=== PATIENT | male | born 1975 | race Caucasian/White ===

== ENCOUNTER 2018-04-13 08:45 | Inpatient (IN) | payer OTHER ==
[2018-04-13] MEDS ORDERED: LORazepam 2 MG/ML SDV IVPUSH ONE ×2 (09:06→18:05)
--- NOTE | 2018-04-13 09:10 | EDM.PDOC ---
ED HPI GENERAL MEDICAL PROBLEM - General Source of Information: Reports: Patient, EMS History Limitations: Reports: Altered Mental Status - History of Present Illness Onset: Unknown/Unsure Duration: Hour(s): Location: Reports: Head (He is not sure what time he tried to go to bed.), Face ( He is to his face and head left lateral face adjacent to his eye. This is superficial abrasion but was actively bleeding. There is dried blood at the left anterior naris as well but no injury to the inner aspect of the nose.) Severity: Severe (Barely responds to stimuli.) Improves with: Reports: None Worsens with: Reports: None Context: Reports: Trauma. Denies: Activity, Exercise, Lifting, Sick Contact Associated Symptoms: Reports: Confusion (Found wedged between the bed and a wall and he is a big chance there is no way he could've gotten out of there on his own volition especially when he was severely impaired. Appears to obstruct the corner of the night table on the way to the floor. He has a superficial abrasion laceration to his left lateral face adjacent to his eye. Both eyes appear to have scleral icterus.), cough w sputum, Malaise, Weakness. Denies: Chest Pain, Cough, Diaphoresis (Office. Smokes at least a pack per day.), Fever/ Chills, Headaches, Shortness of Breath Treatments DEPARTMENT CHAIR: Reports: Oxygen - General Chief Complaint: Drug or Alcohol Abuse Stated Complaint: AMBULANCE Time Seen by Provider: 04/13/18 09:00 - History of Present Illness INITIAL COMMENTS - FREE TEXT/NARRATIVE: 43-year-old male brought to the ED per ambulance after being found by a coworker jammed between his bed and the wall. He was unresponsive even to deep stimulation. 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 Somehow he managed to fall between the bed and the wall was pinned in this position. It's unclear when he may have fallen. Paramedics were called. They found that he was responsive only to very deep painful stimuli. He smells strongly of stale alcohol. He had a cut laceration just lateral to his left eye appears to obstruct the night table corner. There was no emesis on scene. is now alert enough to answer some questions in a very froggy voice. He states he smokes a pack a day. Prefers to lie still with his eyes closed. Smells strongly of stale alcohol. (Chi Chávez) - Related Data Allergies Allergy/AdvReac Type Severity Reaction Status Date / Time No Known Allergies Allergy Verified 04/13/18 09:06 Home Meds: Home Meds Furosemide 20 mg PO DAILY 04/13/18 [History] Propranolol [Inderal] 10 mg PO BID 04/13/18 [History] Social & Family History - Living Situation & Occupation Living situation: Reports: Single Occupation: Employed Social History Comment: His brother reports that he is a chronic alcohol user on a daily basis in large quantities. Attempts to quit in the past of not met with any success primarily because the patient doesn't wish to quit. ED ROS GENERAL - Review of Systems Review Of Systems: Unable To Obtain (Patient) - Physical Exam Exam: See Below Exam Limited By: Altered Mental Status (Confused disoriented to person place and time. Prefers to lie still with his eyes closed.) General Appearance: Obtunded, Moderate Distress (Requires oxygen for support.) Eye Exam: Bilateral Eye: Other (Clinically has bilateral scleral icterus suggesting chronic alcohol abuse. Superficial) Ears: Normal TMs ( abrasion to the left lateral face adjacent to his eye that does not require suture repair.) Nose: Other (Some dried blood at the anterior aspect of his left naris but no internal bleeding or septal hematoma.) Throat/Mouth: Other (Lung is dry and coated teeth are in need of repair.) Head Exam: Other (No outward signs of scalp hematoma or active bleeding. Other than his facial wound.) Neck: Normal Inspection, Supple, Non-Tender, Full Range of Motion, Other. No: Lymphadenopathy (L), Lymphadenopathy (R) Respiratory/Chest: No Respiratory Distress (No pain to palpation), Rhonchi ( Rhonchi both upper lobes of his lungs. Harsh paroxysmal productive sounding cough. Chest x-ray done to make sure he did not aspirate but he smokes at least a pack and a half per day.) Cardiovascular: Normal Peripheral Pulses, Regular Rate, Rhythm, No Edema, No Gallop, No Murmur GI/Abdominal: Normal Bowel Sounds, Soft, Non-Tender, No Organomegaly, No Abnormal Bruit, No Mass, Other (Numerous abdominal striae a. No scars identified ) Neuro Exam (Abbreviated): Inattentive, Confused, Disoriented (Started to person place and time.), Slow to Respond (Will respond to a few questions.). No: Alert , Oriented, CN II-XII Intact, Normal Cognition, Normal Gait, Normal Reflexes, No Motor/Sensory Deficits DTR: 0: Achilles (R), Achilles (L), 1+: Bicep (L), Tricep (R), Patella (R), Patella (L) Back Exam: Normal Inspection, Full Range of Motion, Other (No abrasions contusions or obvious injuries to his thoracic or lumbar spine.) Extremities: Other (Mild bruise mid extensor surface right forearm. No bony injuries identified in either upper extremity or lower extremities. He has full internal/external rotation of both hips with no back pain or pelvis pain. Knees are intact. Ankles normal) Psychiatric: Flat Affect Skin Exam: Warm, Dry, Intact, Normal Color, No Rash Course - Vital Signs Last Recorded V/S: Last Vital Signs Temp 36.2 C 04/13/18 08:50 Pulse 108 H 04/13/18 18:49 Resp 19 04/13/18 18:49 BP 142/65 H 04/13/18 18:49 Pulse Ox 90 L 04/13/18 18:49 - Orders/Labs/Meds Orders: Active Orders 24 hr Category Date Time Status Patient Status [ADT] Routine ADT 04/13/18 22:29 Active Cardiac Monitoring [RC] CONTINUOUS Care 04/13/18 22:30 Active EKG Documentation Completion [RC] STAT Care 04/13/18 09:07 Active Height and Weight [RC] DAILY Care 04/13/18 22:25 Active Intake and Output [RC] QSHIFT Care 04/13/18 22:30 Active Oxygen Therapy [RC] ASDIRECTED Care 04/13/18 09:15 Active Oxygen Therapy [RC] PRN Care 04/13/18 22:29 Active Up to Chair [RC] ASDIRECTED Care 04/13/18 22:25 Active VTE/DVT Education [RC] PER UNIT ROUTINE Care 04/13/18 22:29 Active Vital Signs [RC] Q4H Care 04/13/18 22:29 Active Clear Liquid Diet [DIET] Diet 04/14/18 Breakfast Active Chest 1V Frontal [CR] DAILY Exams 04/14/18 06:00 Ordered Chest 1V Frontal [CR] DAILY Exams 04/15/18 06:00 Ordered Chest 1V Frontal [CR] DAILY Exams 04/16/18 06:00 Ordered Chest 1V Frontal [CR] DAILY Exams 04/17/18 06:00 Ordered Chest 1V Frontal [CR] Stat Exams 04/13/18 18:37 Taken Chest 1V Frontal [CR] Stat Exams 04/13/18 22:00 Ordered Chest PE [Ang Chest] [CT] Stat Exams 04/13/18 19:03 Taken CBC WITH AUTO DIFF [HEME] DAILY Lab 04/13/18 22:30 Ordered CBC WITH AUTO DIFF [HEME] DAILY Lab 04/14/18 22:30 Ordered CBC WITH AUTO DIFF [HEME] DAILY Lab 04/15/18 22:30 Ordered COMPREHENSIVE METABOLIC PN,CMP [CHEM] AM Lab 04/14/18 05:11 Ordered CULTURE BLOOD [BC] Stat Lab 04/13/18 21:06 Received CULTURE BLOOD [BC] Stat Lab 04/13/18 21:12 Received Ampicillin/Sulbactam Na [Unasyn] 3 gm Med 04/14/18 00:00 Ordered Sodium Chloride 0.9% [Normal Saline] 100 ml IV Q6H Dextrose 5%-0.9% NaCl [Dextrose 5%-Normal Saline] 1,000 Med 04/13/18 16:00 Active ml IV ASDIRECTED Dextrose 5%-Lactated Ringers 1,000 ml Med 04/13/18 09:15 Active IV ASDIRECTED Dextrose 5%-Lactated Ringers 1,000 ml Med 04/13/18 11:45 Active IV ASDIRECTED Heparin Sodium Med 04/13/18 22:30 Ordered 5,000 units SUBCUT Q8H Morphine Med 04/13/18 22:25 Ordered 2 mg IVPUSH Q2H PRN Ondansetron [Zofran] Med 04/13/18 22:25 Ordered 4 mg IV Q6H PRN Sodium Chloride 0.9% [Normal Saline] 1,000 ml Med 04/13/18 22:15 Active IV ASDIRECTED oxyCODONE Med 04/13/18 22:25 Ordered 5 mg PO Q4H PRN Blood Culture x2 Reflex Set [OM.PC] Stat Oth 04/13/18 20:40 Ordered Sequential Compression Device [OM.PC] Per Unit Routine Oth 04/13/18 22:31 Ordered Resuscitation Status Routine Resus Stat 04/13/18 22:25 Ordered Medication Orders Heparin Sodium (Porcine) (Heparin Sodium) 5,000 units SUBCUT Q8H [facility] Dextrose/Lactated Ringer's (Dextrose 5%-Lactated Ringers) 1,000 mls @ 999 mls/ hr IV ASDIRECTED [facility] Last Admin: 04/13/18 09:20 Dose: 999 mls/hr Dextrose/Lactated Ringer's (Dextrose 5%-Lactated Ringers) 1,000 mls @ 250 mls/ hr IV ASDIRECTED [facility] Last Admin: 04/13/18 11:35 Dose: 250 mls/hr Dextrose/Sodium Chloride (Dextrose 5%-Normal Saline) 1,000 mls @ 250 mls/hr IV ASDIRECTED [facility] Last Admin: 04/13/18 16:17 Dose: 250 mls/hr Sodium Chloride (Normal Saline) 1,000 mls @ 80 mls/hr IV ASDIRECTED [facility] Last Admin: 04/13/18 22:12 Dose: 80 mls/hr Ampicillin Sodium/Sulbactam (Sodium 3 gm/ Sodium Chloride) 100 mls @ 200 mls/ hr IV Q6H [facility] Morphine Sulfate (Morphine) 2 mg IVPUSH Q2H PRN PRN Reason: Pain (severe 7-10) Stop: 04/14/18 22:32 Ondansetron HCl (Zofran) 4 mg IV Q6H PRN PRN Reason: Nausea/Vomiting Oxycodone HCl (Oxycodone) 5 mg PO Q4H PRN PRN Reason: Pain (moderate 4-6) Labs: Laboratory Tests 04/13/18 04/13/18 04/13/18 Range/Units 09:00 09:00 09:00 WBC 5.91 (4.23-9.07) K/mm3 RBC 3.73 L (4.63-6.08) M/mm3 Hgb 10.1 L (13.7-17.5) gm/L Hct 32.1 L (40.1-51.0) % MCV 86.1 (79.0-92.2) fl MCH 27.1 (25.7-32.2) pg MCHC 31.5 L (32.2-35.5) g/dl RDW Std Deviation 51.2 H (35.1-43.9) fL Plt Count 117 L (163-337) K/mm3 MPV 10.3 (9.4-12.3) fl Neutrophils % (Manual) 54 (40-60) % Band Neutrophils % 2 (0-10) % Lymphocytes % (Manual) 35 (20-40) % Atypical Lymphs % 1 % Monocytes % (Manual) 5 (2-10) % Eosinophils % (Manual) 2 (0.8-7.0) % Basophils % (Manual) 0 L (0.2-1.2) Metamyelocytes % 1 Platelet Estimate Decreased Plt Morphology Comment Normal Polychromasia 1+ slight Anisocytosis 1+ slight Target Cells Moderate Ovalocytes Few Acanthocytes (Spur) Few Rouleaux 1+ slight RBC Morph Comment Not Reportable PT 15.3 H (9.5-12.1) SECONDS INR 1.41 D-Dimer, Quantitative (0.19-0.50) mg/L Puncture Site ABG pH (7.35-7.45) ABG pCO2 (35.0-45.0) mmHg ABG pO2 (80.0-100.0) mmHg ABG HCO3 (22.0-26.0) meq/L ABG O2 Saturation (96.0-97.0) % ABG Base Excess (-2-2.0) A-a Gradient mmHg O2 Delivery Device FiO2 (21.00-100.00) % Sodium 139 (136-145) mEq/L Potassium 2.8 L (3.5-5.1) mEq/L Chloride 99 (98-107) mEq/L Carbon Dioxide 31 (21-32) mEq/L Anion Gap 11.8 (5-15) BUN 4 L (7-18) mg/dL Creatinine 0.8 (0.7-1.3) mg/dL Est Cr Clr Drug Dosing TNP Estimated GFR (MDRD) > 60 (>60) mL/min BUN/Creatinine Ratio 5.0 L (14-18) Glucose 152 H (74-106) mg/dL Lactic Acid (0.4-2.0) mmol/L Calcium 7.4 L (8.5-10.1) mg/dL Magnesium 1.6 L (1.8-2.4) mg/dl Total Bilirubin 5.2 H (0.2-1.0) mg/dL AST 87 H (15-37) U/L ALT 38 (16-63) U/L Alkaline Phosphatase 112 (46-116) U/L Ammonia (11-32) umol/L Creatine Kinase 624 H (39-308) U/L Troponin I (0.00-0.056) ng/mL C-Reactive Protein 1.6 H* (<1.0) mg/dL NT-Pro-B Natriuret Pep (0-125) pg/mL Total Protein 8.5 H (6.4-8.2) g/dl Albumin 2.8 L (3.4-5.0) g/dl Globulin 5.7 gm/dL Albumin/Globulin Ratio 0.5 L (1-2) Lipase (73-393) U/L Urine Color (Yellow) Urine Appearance (Clear) Urine pH (5.0-8.0) Ur Specific [place] (1.005-1.030) Urine Protein (Negative) Urine Glucose (UA) (Negative) Urine Ketones (Negative) Urine Occult Blood (Negative) Urine Nitrite (Negative) Urine Bilirubin (Negative) Urine Urobilinogen (0.2-1.0) Ur Leukocyte Esterase (Negative) Urine Opiates Screen (NEGATIVE) Ur Buprenorphine Scrn (NEGATIVE) Ur Oxycodone Screen (NEGATIVE) Urine Methadone Screen (NEGATIVE) Ur Propoxyphene Screen (NEGATIVE) Ur Barbiturates Screen (NEGATIVE) Ur Tricyclics Screen (NEGATIVE) Ur Phencyclidine Scrn (NEGATIVE) Ur Amphetamine Screen (NEGATIVE) U Methamphetamines Scrn (NEGATIVE) U Benzodiazepines Scrn (NEGATIVE) U Cocaine Metab Screen (NEGATIVE) U Marijuana (THC) Screen (NEGATIVE) Ethyl Alcohol 0.44 (0.00) gm% Ketones (0.0-0.3) mM 04/13/18 04/13/18 04/13/18 Range/Units 09:00 09:00 09:25 WBC (4.23-9.07) K/mm3 RBC (4.63-6.08) M/mm3 Hgb (13.7-17.5) gm/L Hct (40.1-51.0) % MCV (79.0-92.2) fl MCH (25.7-32.2) pg MCHC (32.2-35.5) g/dl RDW Std Deviation (35.1-43.9) fL Plt Count (163-337) K/mm3 MPV (9.4-12.3) fl Neutrophils % (Manual) (40-60) % Band Neutrophils % (0-10) % Lymphocytes % (Manual) (20-40) % Atypical Lymphs % % Monocytes % (Manual) (2-10) % Eosinophils % (Manual) (0.8-7.0) % Basophils % (Manual) (0.2-1.2) Metamyelocytes % Platelet Estimate Plt Morphology Comment Polychromasia Anisocytosis Target Cells Ovalocytes Acanthocytes (Spur) Rouleaux RBC Morph Comment PT (9.5-12.1) SECONDS INR D-Dimer, Quantitative (0.19-0.50) mg/L Puncture Site ABG pH (7.35-7.45) ABG pCO2 (35.0-45.0) mmHg ABG pO2 (80.0-100.0) mmHg ABG HCO3 (22.0-26.0) meq/L ABG O2 Saturation (96.0-97.0) % ABG Base Excess (-2-2.0) A-a Gradient mmHg O2 Delivery Device FiO2 (21.00-100.00) % Sodium (136-145) mEq/L Potassium (3.5-5.1) mEq/L Chloride (98-107) mEq/L Carbon Dioxide (21-32) mEq/L Anion Gap (5-15) BUN (7-18) mg/dL Creatinine (0.7-1.3) mg/dL Est Cr Clr Drug Dosing Estimated GFR (MDRD) (>60) mL/min BUN/Creatinine Ratio (14-18) Glucose (74-106) mg/dL Lactic Acid 2.9 H (0.4-2.0) mmol/L Calcium (8.5-10.1) mg/dL Magnesium (1.8-2.4) mg/dl Total Bilirubin (0.2-1.0) mg/dL AST (15-37) U/L ALT (16-63) U/L Alkaline Phosphatase (46-116) U/L Ammonia (11-32) umol/L Creatine Kinase (39-308) U/L Troponin I (0.00-0.056) ng/mL C-Reactive Protein (<1.0) mg/dL NT-Pro-B Natriuret Pep (0-125) pg/mL Total Protein (6.4-8.2) g/dl Albumin (3.4-5.0) g/dl Globulin gm/dL Albumin/Globulin Ratio (1-2) Lipase 731 H (73-393) U/L Urine Color (Yellow) Urine Appearance (Clear) Urine pH (5.0-8.0) Ur Specific [place] (1.005-1.030) Urine Protein (Negative) Urine Glucose (UA) (Negative) Urine Ketones (Negative) Urine Occult Blood (Negative) Urine Nitrite (Negative) Urine Bilirubin (Negative) Urine Urobilinogen (0.2-1.0) Ur Leukocyte Esterase (Negative) Urine Opiates Screen (NEGATIVE) Ur Buprenorphine Scrn (NEGATIVE) Ur Oxycodone Screen (NEGATIVE) Urine Methadone Screen (NEGATIVE) Ur Propoxyphene Screen (NEGATIVE) Ur Barbiturates Screen (NEGATIVE) Ur Tricyclics Screen (NEGATIVE) Ur Phencyclidine Scrn (NEGATIVE) Ur Amphetamine Screen (NEGATIVE) U Methamphetamines Scrn (NEGATIVE) U Benzodiazepines Scrn (NEGATIVE) U Cocaine Metab Screen (NEGATIVE) U Marijuana (THC) Screen (NEGATIVE) Ethyl Alcohol (0.00) gm% Ketones 0.19 (0.0-0.3) mM 04/13/18 04/13/18 04/13/18 Range/Units 17:50 17:50 18:25 WBC (4.23-9.07) K/mm3 RBC (4.63-6.08) M/mm3 Hgb (13.7-17.5) gm/L Hct (40.1-51.0) % MCV (79.0-92.2) fl MCH (25.7-32.2) pg MCHC (32.2-35.5) g/dl RDW Std Deviation (35.1-43.9) fL Plt Count (163-337) K/mm3 MPV (9.4-12.3) fl Neutrophils % (Manual) (40-60) % Band Neutrophils % (0-10) % Lymphocytes % (Manual) (20-40) % Atypical Lymphs % % Monocytes % (Manual) (2-10) % Eosinophils % (Manual) (0.8-7.0) % Basophils % (Manual) (0.2-1.2) Metamyelocytes % Platelet Estimate Plt Morphology Comment Polychromasia Anisocytosis Target Cells Ovalocytes Acanthocytes (Spur) Rouleaux RBC Morph Comment PT (9.5-12.1) SECONDS INR D-Dimer, Quantitative (0.19-0.50) mg/L Puncture Site Lt radial ABG pH 7.51 H (7.35-7.45) ABG pCO2 38.3 (35.0-45.0) mmHg ABG pO2 53.0 L (80.0-100.0) mmHg ABG HCO3 30.3 H (22.0-26.0) meq/L ABG O2 Saturation 80.2 L (96.0-97.0) % ABG Base Excess 7.0 H (-2-2.0) A-a Gradient 34 mmHg O2 Delivery Device Room air FiO2 21.00 (21.00-100.00) % Sodium (136-145) mEq/L Potassium (3.5-5.1) mEq/L Chloride (98-107) mEq/L Carbon Dioxide (21-32) mEq/L Anion Gap (5-15) BUN (7-18) mg/dL Creatinine (0.7-1.3) mg/dL Est Cr Clr Drug Dosing Estimated GFR (MDRD) (>60) mL/min BUN/Creatinine Ratio (14-18) Glucose (74-106) mg/dL Lactic Acid (0.4-2.0) mmol/L Calcium (8.5-10.1) mg/dL Magnesium (1.8-2.4) mg/dl Total Bilirubin (0.2-1.0) mg/dL AST (15-37) U/L ALT (16-63) U/L Alkaline Phosphatase (46-116) U/L Ammonia (11-32) umol/L Creatine Kinase (39-308) U/L Troponin I (0.00-0.056) ng/mL C-Reactive Protein (<1.0) mg/dL NT-Pro-B Natriuret Pep (0-125) pg/mL Total Protein (6.4-8.2) g/dl Albumin (3.4-5.0) g/dl Globulin gm/dL Albumin/Globulin Ratio (1-2) Lipase (73-393) U/L Urine Color [place] H (Yellow) Urine Appearance Clear (Clear) Urine pH 6.0 (5.0-8.0) Ur Specific [place] 1.025 (1.005-1.030) Urine Protein Trace H (Negative) Urine Glucose (UA) Trace H (Negative) Urine Ketones Trace H (Negative) Urine Occult Blood Negative (Negative) Urine Nitrite Negative (Negative) Urine Bilirubin 2+ H (Negative) Urine Urobilinogen >=8.0 H (0.2-1.0) Ur Leukocyte Esterase Negative (Negative) Urine Opiates Screen Negative (NEGATIVE) Ur Buprenorphine Scrn Negative (NEGATIVE) Ur Oxycodone Screen Negative (NEGATIVE) Urine Methadone Screen Negative (NEGATIVE) Ur Propoxyphene Screen Negative (NEGATIVE) Ur Barbiturates Screen Negative (NEGATIVE) Ur Tricyclics Screen Negative (NEGATIVE) Ur Phencyclidine Scrn Negative (NEGATIVE) Ur Amphetamine Screen Negative (NEGATIVE) U Methamphetamines Scrn Negative (NEGATIVE) U Benzodiazepines Scrn Negative (NEGATIVE) U Cocaine Metab Screen Negative (NEGATIVE) U Marijuana (THC) Screen Negative (NEGATIVE) Ethyl Alcohol (0.00) gm% Ketones (0.0-0.3) mM 04/13/18 04/13/18 04/13/18 Range/Units 18:25 18:25 18:25 WBC (4.23-9.07) K/mm3 RBC (4.63-6.08) M/mm3 Hgb (13.7-17.5) gm/L Hct (40.1-51.0) % MCV (79.0-92.2) fl MCH (25.7-32.2) pg MCHC (32.2-35.5) g/dl RDW Std Deviation (35.1-43.9) fL Plt Count (163-337) K/mm3 MPV (9.4-12.3) fl Neutrophils % (Manual) (40-60) % Band Neutrophils % (0-10) % Lymphocytes % (Manual) (20-40) % Atypical Lymphs % % Monocytes % (Manual) (2-10) % Eosinophils % (Manual) (0.8-7.0) % Basophils % (Manual) (0.2-1.2) Metamyelocytes % Platelet Estimate Plt Morphology Comment Polychromasia Anisocytosis Target Cells Ovalocytes Acanthocytes (Spur) Rouleaux RBC Morph Comment PT (9.5-12.1) SECONDS INR D-Dimer, Quantitative 5.75 H (0.19-0.50) mg/L Puncture Site ABG pH (7.35-7.45) ABG pCO2 (35.0-45.0) mmHg ABG pO2 (80.0-100.0) mmHg ABG HCO3 (22.0-26.0) meq/L ABG O2 Saturation (96.0-97.0) % ABG Base Excess (-2-2.0) A-a Gradient mmHg O2 Delivery Device FiO2 (21.00-100.00) % Sodium (136-145) mEq/L Potassium (3.5-5.1) mEq/L Chloride (98-107) mEq/L Carbon Dioxide (21-32) mEq/L Anion Gap (5-15) BUN (7-18) mg/dL Creatinine (0.7-1.3) mg/dL Est Cr Clr Drug Dosing Estimated GFR (MDRD) (>60) mL/min BUN/Creatinine Ratio (14-18) Glucose (74-106) mg/dL Lactic Acid (0.4-2.0) mmol/L Calcium (8.5-10.1) mg/dL Magnesium (1.8-2.4) mg/dl Total Bilirubin (0.2-1.0) mg/dL AST (15-37) U/L ALT (16-63) U/L Alkaline Phosphatase (46-116) U/L Ammonia (11-32) umol/L Creatine Kinase (39-308) U/L Troponin I 0.045 (0.00-0.056) ng/mL C-Reactive Protein (<1.0) mg/dL NT-Pro-B Natriuret Pep 26 (0-125) pg/mL Total Protein (6.4-8.2) g/dl Albumin (3.4-5.0) g/dl Globulin gm/dL Albumin/Globulin Ratio (1-2) Lipase (73-393) U/L Urine Color (Yellow) Urine Appearance (Clear) Urine pH (5.0-8.0) Ur Specific [place] (1.005-1.030) Urine Protein (Negative) Urine Glucose (UA) (Negative) Urine Ketones (Negative) Urine Occult Blood (Negative) Urine Nitrite (Negative) Urine Bilirubin (Negative) Urine Urobilinogen (0.2-1.0) Ur Leukocyte Esterase (Negative) Urine Opiates Screen (NEGATIVE) Ur Buprenorphine Scrn (NEGATIVE) Ur Oxycodone Screen (NEGATIVE) Urine Methadone Screen (NEGATIVE) Ur Propoxyphene Screen (NEGATIVE) Ur Barbiturates Screen (NEGATIVE) Ur Tricyclics Screen (NEGATIVE) Ur Phencyclidine Scrn (NEGATIVE) Ur Amphetamine Screen (NEGATIVE) U Methamphetamines Scrn (NEGATIVE) U Benzodiazepines Scrn (NEGATIVE) U Cocaine Metab Screen (NEGATIVE) U Marijuana (THC) Screen (NEGATIVE) Ethyl Alcohol (0.00) gm% Ketones (0.0-0.3) mM 04/13/18 04/13/18 Range/Units 18:35 22:01 WBC (4.23-9.07) K/mm3 RBC (4.63-6.08) M/mm3 Hgb (13.7-17.5) gm/L Hct (40.1-51.0) % MCV (79.0-92.2) fl MCH (25.7-32.2) pg MCHC (32.2-35.5) g/dl RDW Std Deviation (35.1-43.9) fL Plt Count (163-337) K/mm3 MPV (9.4-12.3) fl Neutrophils % (Manual) (40-60) % Band Neutrophils % (0-10) % Lymphocytes % (Manual) (20-40) % Atypical Lymphs % % Monocytes % (Manual) (2-10) % Eosinophils % (Manual) (0.8-7.0) % Basophils % (Manual) (0.2-1.2) Metamyelocytes % Platelet Estimate Plt Morphology Comment Polychromasia Anisocytosis Target Cells Ovalocytes Acanthocytes (Spur) Rouleaux RBC Morph Comment PT (9.5-12.1) SECONDS INR D-Dimer, Quantitative (0.19-0.50) mg/L Puncture Site ABG pH (7.35-7.45) ABG pCO2 (35.0-45.0) mmHg ABG pO2 (80.0-100.0) mmHg ABG HCO3 (22.0-26.0) meq/L ABG O2 Saturation (96.0-97.0) % ABG Base Excess (-2-2.0) A-a Gradient mmHg O2 Delivery Device FiO2 (21.00-100.00) % Sodium (136-145) mEq/L Potassium (3.5-5.1) mEq/L Chloride (98-107) mEq/L Carbon Dioxide (21-32) mEq/L Anion Gap (5-15) BUN (7-18) mg/dL Creatinine (0.7-1.3) mg/dL Est Cr Clr Drug Dosing Estimated GFR (MDRD) (>60) mL/min BUN/Creatinine Ratio (14-18) Glucose (74-106) mg/dL Lactic Acid (0.4-2.0) mmol/L Calcium (8.5-10.1) mg/dL Magnesium (1.8-2.4) mg/dl Total Bilirubin (0.2-1.0) mg/dL AST (15-37) U/L ALT (16-63) U/L Alkaline Phosphatase (46-116) U/L Ammonia 82 H (11-32) umol/L Creatine Kinase (39-308) U/L Troponin I (0.00-0.056) ng/mL C-Reactive Protein (<1.0) mg/dL NT-Pro-B Natriuret Pep (0-125) pg/mL Total Protein (6.4-8.2) g/dl Albumin (3.4-5.0) g/dl Globulin gm/dL Albumin/Globulin Ratio (1-2) Lipase (73-393) U/L Urine Color (Yellow) Urine Appearance (Clear) Urine pH (5.0-8.0) Ur Specific [place] (1.005-1.030) Urine Protein (Negative) Urine Glucose (UA) (Negative) Urine Ketones (Negative) Urine Occult Blood (Negative) Urine Nitrite (Negative) Urine Bilirubin (Negative) Urine Urobilinogen (0.2-1.0) Ur Leukocyte Esterase (Negative) Urine Opiates Screen (NEGATIVE) Ur Buprenorphine Scrn (NEGATIVE) Ur Oxycodone Screen (NEGATIVE) Urine Methadone Screen (NEGATIVE) Ur Propoxyphene Screen (NEGATIVE) Ur Barbiturates Screen (NEGATIVE) Ur Tricyclics Screen (NEGATIVE) Ur Phencyclidine Scrn (NEGATIVE) Ur Amphetamine Screen (NEGATIVE) U Methamphetamines Scrn (NEGATIVE) U Benzodiazepines Scrn (NEGATIVE) U Cocaine Metab Screen (NEGATIVE) U Marijuana (THC) Screen (NEGATIVE) Ethyl Alcohol 0.28 (0.00) gm% Ketones (0.0-0.3) mM Meds: Medications Generic Name Dose Route Start Last Admin Trade Name Franklyn PRN Reason Stop Dose Admin Heparin Sodium (Porcine) 5,000 units 04/13/18 22:30 Heparin Sodium SUBCUT Q8H PERLA Dextrose/Lactated Ringer's 1,000 mls @ 999 mls/hr 04/13/18 09:15 04/13/18 09: 20 Dextrose 5%-Lactated Ringers IV 999 mls/hr ASDIRECTED PERLA Administration Dextrose/Lactated Ringer's 1,000 mls @ 250 mls/hr 04/13/18 11:45 04/13/18 11: 35 Dextrose 5%-Lactated Ringers IV 250 mls/hr ASDIRECTED PERLA Administration Dextrose/Sodium Chloride 1,000 mls @ 250 mls/hr 04/13/18 16:00 04/13/18 16:17 Dextrose 5%-Normal Saline IV 250 mls/hr ASDIRECTED PERLA Administration Sodium Chloride 1,000 mls @ 80 mls/hr 04/13/18 22:15 04/13/18 22:12 Normal Saline IV 80 mls/hr ASDIRECTED PERLA Administration Ampicillin Sodium/Sulbactam 100 mls @ 200 mls/hr 04/14/18 00:00 Sodium 3 gm/ Sodium Chloride IV Q6H PERLA Morphine Sulfate 2 mg 04/13/18 22:25 Morphine IVPUSH 04/14/18 22:32 Q2H PRN Pain (severe 7-10) Ondansetron HCl 4 mg 04/13/18 22:25 Zofran IV Q6H PRN Nausea/Vomiting Oxycodone HCl 5 mg 04/13/18 22:25 Oxycodone PO Q4H PRN Pain (moderate 4-6) Discontinued Medications Generic Name Dose Route Start Last Admin Trade Name Franklyn PRN Reason Stop Dose Admin Thiamine HCl 100 mg/ Sodium 101 mls @ 202 mls/hr 04/13/18 09:20 04/13/18 09: 36 Chloride IV 04/13/18 09:21 202 mls/hr ONETIME ONE Administration Potassium Chloride 10 meq/ 100 mls @ 100 mls/hr 04/13/18 10:55 04/13/18 11:05 Premix IV 04/13/18 11:54 100 mls/hr ONETIME ONE Administration Potassium Chloride 10 meq/ 100 mls @ 100 mls/hr 04/13/18 15:54 04/13/18 16:17 Premix IV 04/13/18 16:53 100 mls/hr ONETIME ONE Administration Ampicillin Sodium/Sulbactam 100 mls @ 200 mls/hr 04/13/18 20:39 04/13/18 22: 18 Sodium 3 gm/ Sodium Chloride IV 04/13/18 21:08 200 mls/hr ONETIME ONE Administration Iopamidol 100 ml 04/13/18 19:15 04/13/18 20:04 Isovue-370 (76%) IVPUSH 04/13/18 19:16 80 ml ONETIME ONE Administration Iopamidol 100 ml 04/13/18 20:03 04/13/18 20:05 Isovue-370 (76%) IVPUSH 04/13/18 20:04 80 ml ONETIME ONE Administration Lorazepam 1 mg 04/13/18 09:06 04/13/18 09:21 Ativan IVPUSH 04/13/18 09:07 1 mg ONETIME ONE Administration Lorazepam 1 mg 04/13/18 18:05 04/13/18 22:16 Ativan IVPUSH 04/13/18 18:06 Not Given ONETIME ONE Metoclopramide HCl 10 mg 04/13/18 09:11 04/13/18 09:21 Reglan IVPUSH 04/13/18 09:12 10 mg ONETIME ONE Administration - Radiology Interpretation Free Text/Narrative:: 43-year-old male presents to the ED per [facility]. He was found by coworker jammed between the bed and his wall. Appears that he struck the right side of his face on the corner of a night table. This is a superficial laceration will not require laceration repair. He was so obtunded that his sats were in the 77 percentiles when they assessed him. He responded only to deep painful stimuli. Breath smells strongly of stale alcohol. There are no puncture wounds to suggest recent IV antibiotic usage in either antecubital fossa. He responds now to verbal stimulation and will answer most questions although he is speech is dysarthric. He has a harsh paroxysmal productive sounding cough with rhonchi both upper lobes. There is no evidence of any bony injuries only minor contusions to his forearms. He had to be done. Routine labs to be done. This is including a blood alcohol level. He will receive thiamine 100 mg IV and Ativan 1 mg IV. Reglan 10 mg IV. (Chi Chávez) - Re-Assessments/Exams Free Text/Narrative Re-Assessment/Exam: 04/13/18 10:24: CT head reveals more advanced degenerative changes in the basal ganglia than one would anticipate for his age. There is diffuse small vessel ischemic changes in both basal ganglia without any lacunar infarcts. There is no skull fractures or intracranial bleeding identified. X-ray of his chest shows elevated left hemidiaphragm. It appears that he bit his been left side dependent as there is vascular congestion throughout the left side of his chest only. The right side appears normal. 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 04/13/18 10:55 Labs are back revealing a normal white count at 5.91. Hemoglobin is low at 10.1 with hematocrit of 32.1. MCV is normal at 86.1. Platelet count low normal at 1 17,000. Differential shows 54% neutrophils 2% band cells. PT is 15.3 with an INR of 1.41. By May anticoagulated. Serum sodium is 139. Potassium is low at 2.8. He will be given potassium intravenously 10 mEq. Chloride is 99 with a bicarbonate 31. Anion gap is 11.8. BUNs 4 with a creatinine of 0.8. GFR is greater than 60. Glucose is 152. Lactic acid is elevated at 2.9. Calcium is 7.4. Magnesium low at 1.6. Total bilirubin is elevated at 5.2. AST is 87 with an ALT of 38. Alk phosphatase is 112. Creatine kinase is 624 with a C-reactive protein of 1.6. Blood alcohol is 0.44 g percent. Serum ketones elevated at 0.19. 04/13/18 11:32 lipase also returned elevated at 731. He has a history of recurrent pancreatitis of course from chronic alcohol abuse. Since his CPK is up mildly. I will continue IV fluids D5 LR at 250 mils per hour. He'll be in the ED for several hours until he is sober walking and talking. 04/13/18 15:36 Patient remains asleep --sleeping off his drunk. 04/13/18 18:05 patient is now alert he is able to understand verbal communication. He was able to stand at the bedside although he is extremely tremulous. I asked her repeatedly if he wished to stay in hospital for detox from alcohol is him and he declined. Plan will be to give him Ativan 1 mg IV to help with the shakes. He is not interested in treatment program at this time even though I indicated that he is suffering cirrhosis of the liver. The urine in the past year was severely hyperbilirubinemic. 04/13/18 18:25 been brought to my attention stat discharge that his O2 sats remained 85% on room air. I'm going to therefore have an ABG performed. I've ordered a d-dimer a serum troponin and a BNP in case were missing a diagnosis. Patient is alert but very tremulous at this time. His Ativan that I had ordered for the tremors have been placed on hold until I see his ABGs. 04/13/18 18:37 O2 sats remaining 82% with a good plus. Chest x-ray will be repeated as well in case he aspirated this morning. 04/13/18 19:10 repeat chest x-ray is unchanged from the one done earlier this morning. It still shows no significant evidence of an aspiration. The left hemidiaphragm does appear to be elevated the visualized portions of the right lung appear to be within normal limits. Cardiac silhouette is enlarged compatible with mild to moderate cardiomegaly. 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 His ABGs revealed a pH of 7.51. PCO2 is 38.3. PO2 is 53. Saturations on room air are 80%. Currently he 94% on 4 L/m by nasal specks. Plan I will turn care over to Dr. Ortega as it is change of shift. Patient will have CT pulmonary angiogram performed. We'll also awaiting the results of his BNP troponin. (Chi Chávez) Free Text/Narrative Re-Assessment/Exam: 04/13/18 20:40 CT of the chest with IV contrast is read by virtual radiology as: - Multiple acute left rib fractures, involving the sixth, seventh, eighth, ninth and 11th ribs. The left eighth rib is fractured in 2 locations. - Moderate to large left pleural effusion. - Findings suspicious for pneumonia in the right middle lobe. - Otherwise, no evidence of significant acute process. Exam is nondiagnostic for pulmonary emboli, however. - Cardiomegaly. - Suspect mild cirrhotic change of the liver. - See above for remaining findings. 04/13/18 20:40 Based on the above results, I have ordered 2 sets of blood cultures and will start the patient on IV Unasyn, as empiric treatment for aspiration pneumonia. Given the rib fractures, with a likely traumatic effusion versus hemothorax, this is a trauma case, not a medicine case. Case therefore discussed with Dr. Vance at 20:31. She will come to the ED to evaluate the patient, in anticipation that she will place a chest tube. 04/13/18 22:41 Because the patient remained unresponsive, an ammonia level and repeat alcohol level were ordered. The alcohol level has returned elevated at 0.28, but in discussion with the lab, the alcohol level was obtained from previously drawn blood at 18:35. This indicates a drop of 17.89 mg/dL/h. Projecting forward, the patient's alcohol level will not be 0 until 10:14 in the morning. The patient's ammonia level has returned elevated at 82 (11-32). This indicates that part of the patient's altered mental status may be related to hepatic encephalopathy. 04/13/18 22:46 The above test results were discussed with Dr. Vance here in the ED. She has placed a left-sided chest tube, which appears to be functioning properly, draining blood. She has already entered admission orders. (Florencio Rees) Departure - Departure Time of Disposition: 18:11 Condition: Fair - Discharge Information *PRESCRIPTION DRUG MONITORING PROGRAM REVIEWED*: No *COPY OF PRESCRIPTION DRUG MONITORING REPORT IN PATIENT BUTCH: No - Departure Disposition: Admitted As Inpatient 67 Clinical Impression: Alcohol abuse, Multiple fractures of ribs of left side, Traumatic hemothorax, Hepatic encephalopathy, Alcohol intoxication, Aspiration pneumonia Cirrhosis of liver Qualifiers: Hepatic cirrhosis type: alcoholic cirrhosis Ascites presence: without ascites Qualified Code(s): K70.30 - Alcoholic cirrhosis of liver without ascites - Discharge Information Instructions: What You Need to Know About Alcohol Abuse and Dependence, Adult, Alcohol Intoxication, [id number], Alcohol Abuse and Nutrition, Finding Treatment for Addiction Additional Instructions: Evaluation the emergency room today when you were found wedged between the wall and your bed in your home. You were found to be very low on oxygen levels. You were barely responsive to deep physical stimulation. You are placed on oxygen and removed from between the bed and the wall by paramedics and ambulance personnel. Mother brought to the hospital for evaluation. You able to speak with me and indicated your history. It is quite clear that she drank a large amount of alcohol last evening that caused her obtundation and lethargy today. Call here in the ED was still 4.4 with the legal limit to drive a motor vehicle at 0.08 therefore he would not be legally able to drive a motor vehicle for 24 hours. You're treated in the emergency room with intravenous fluids to provide rehydration and restore your serum potassium levels and magnesium levels. You' re treated with antinausea medication to prevent vomiting. Labs revealed and inflammation of your liver and pancreas from alcohol abuse. Labs also reveal signs and symptoms of cirrhosis of the liver. I would strongly suggest you give some consideration to stopping alcohol use as it will go on to cause cirrhosis of the liver and . Strongly urge you to have no further alcohol use today. Plenty of fluids such as Gatorade/Powerade to restore your volume depletion. A good meal would be in order as well. Suggest follow-up with addiction counselor if you wish to stop drinking. You could call [facility] at [phone] as they offer alcohol and drug treatment programs . - My Orders Last 24 Hours: My Active Orders 04/13/18 20:40 Blood Culture x2 Reflex Set [OM.PC] Stat 04/13/18 21:06 CULTURE BLOOD [BC] Stat 04/13/18 21:12 CULTURE BLOOD [BC] Stat - Assessment/Plan Last 24 Hours: My Active Orders 04/13/18 20:40 Blood Culture x2 Reflex Set [OM.PC] Stat 04/13/18 21:06 CULTURE BLOOD [BC] Stat 04/13/18 21:12 CULTURE BLOOD [BC] Stat
[2018-04-13] MEDS ORDERED: Metoclopramide 10 MG/2 ML SDV IVPUSH ONE (09:11)
[2018-04-13] MEDS ORDERED: Dextrose 5%-Lactated Ringers 1,000 ML IV SCH ×2 (09:15→11:45)
[2018-04-13] MEDS ORDERED: Thiamine 100 MG in Sodium Chloride 0.9% 100 ML IV ONE (09:20)
--- NOTE | 2018-04-13 10:24 | CT ---
Head CT Technique: Multiple axial sections through the brain were obtained. Intravenous contrast was not utilized. Comparison: No previous intracranial imaging. Findings: Ventricles along the basal cisterns and sulci over the convex these are mildly prominent and more prominent than usually seen for the patient's age. No abnormal parenchymal densities are seen. No evidence of intracranial hemorrhage. No midline shift or mass effect is seen. Bone window settings were reviewed which shows mild mucosal thickening within the ethmoid sinuses. No acute calvarial abnormality is appreciated. Impression: 1. Generalized atrophy which is more prominent than usually seen in a patient of this age. Differential includes chronic alcohol or drug abuse as well as some types of seizure medicines can cause this finding. Previous trauma can also cause this finding. 2. No acute intracranial abnormality is seen. 3. Slight sinus findings as noted above likely pre-existing. Diagnostic code #2
[2018-04-13] MEDS ORDERED: Potassium Chloride 10 MEQ in Premix Bag 1 BAG IV ONE ×2 (10:55→15:54)
[2018-04-13] MEDS ORDERED: Dextrose 5%-0.9% NaCl 1,000 ML IV SCH (16:00)
[2018-04-13] MEDS ORDERED: Iopamidol 755 Mg/ML 100 ML Bottle IVPUSH ONE ×2 (19:15→20:03)
[2018-04-13] MEDS ORDERED: Ampicillin/Sulbactam Na 3 GM in Sodium Chloride 0.9% 100 ML IV ONE (20:39)
--- NOTE | 2018-04-13 21:21 | CR ---
Chest: Portable view of the chest was obtained. Comparison: No previous study. Heart size is accentuated from portable technique. Upper mediastinum is normal. Haziness noted within the left base. Right lung is clear. Bony structures are grossly intact. Impression: 1. Haziness within the left lung base either due to atelectasis or possibly small area of pneumonia. 2. Portable chest x-ray is otherwise unremarkable. Diagnostic code #3
--- NOTE | 2018-04-13 22:09 | PCM.HP ---
H&P History of Present Illness - General Date of Service: 04/13/18 Admit Problem/Dx: hemothorax Source of Information: Patient, Provider History Limitations: Reports: Intoxication - History of Present Illness Initial Comments - Free Text/Narative: Pt is a 43 y/o male who was found at home stuck between a bed and a wall. He was brought in by EMS with profound intoxication. He is a poor historian. Per medical staff, pt had persistent hypoxia requiring supplemental oxygen despite becoming more sober. X-ray and CTA revealed multiple rib fractures and a moderate to large effusion on the left - Related Data Allergies/Adverse Reactions: Allergies Allergy/AdvReac Type Severity Reaction Status Date / Time No Known Allergies Allergy Verified 04/13/18 09:06 Home Medications: Home Meds Furosemide 20 mg PO DAILY 04/13/18 [History] Propranolol [Inderal] 10 mg PO BID 04/13/18 [History] Past Medical History Cardiovascular History: Reports: Hypertension Other Gastrointestinal History: Cirrhosis Social & Family History - Family History Family Medical History: Noncontributory - Tobacco Use Smoking Status *Q: Current Every Day Smoker Years of Tobacco use: 20 Packs/Tins Daily: 1 - Living Situation & Occupation Living situation: Reports: Single Occupation: Employed H&P Review of Systems - Review of Systems: Review Of Systems: See Below General: Reports: No Symptoms HEENT: Reports: No Symptoms Pulmonary: Reports: Shortness of Breath Cardiovascular: Reports: No Symptoms Gastrointestinal: Reports: No Symptoms Genitourinary: Reports: No Symptoms Musculoskeletal: Reports: No Symptoms Skin: Reports: Jaundice Psychiatric: Reports: No Symptoms Neurological: Reports: No Symptoms Hematologic/Lymphatic: Reports: No Symptoms Immunologic: Reports: No Symptoms Exam - Exam Exam: See Below - Vital Signs Vital Signs: Last Vital Signs Temp 36.2 C 04/13/18 08:50 Pulse 108 H 04/13/18 18:49 Resp 19 04/13/18 18:49 BP 142/65 H 04/13/18 18:49 Pulse Ox 90 L 04/13/18 18:49 Weight: 104.326 kg - Exam Quality Assessment: Supplemental Oxygen General: Cooperative, Lethargic HEENT: EOMI, Scleral Icterus Neck: Supple Lungs: Normal Respiratory Effort, Decreased Breath Sounds (on left lung) Cardiovascular: Regular Rate, Regular Rhythm GI/Abdominal Exam: Soft, Non-Tender, No Distention Extremities: Normal Inspection Skin: Other (Jaundiced) Neurological: Other (Asterixis) Neuro Extensive - Mental Status: Slow Response to Commands - Patient Data Lab Results Last 24 hrs: Laboratory Results - last 24 hr 04/13/18 04/13/18 04/13/18 Range/Units 09:00 09:00 09:00 WBC 5.91 (4.23-9.07) K/mm3 RBC 3.73 L (4.63-6.08) M/mm3 Hgb 10.1 L (13.7-17.5) gm/L Hct 32.1 L (40.1-51.0) % MCV 86.1 (79.0-92.2) fl MCH 27.1 (25.7-32.2) pg MCHC 31.5 L (32.2-35.5) g/dl RDW Std Deviation 51.2 H (35.1-43.9) fL Plt Count 117 L (163-337) K/mm3 MPV 10.3 (9.4-12.3) fl Neutrophils % (Manual) 54 (40-60) % Band Neutrophils % 2 (0-10) % Lymphocytes % (Manual) 35 (20-40) % Atypical Lymphs % 1 % Monocytes % (Manual) 5 (2-10) % Eosinophils % (Manual) 2 (0.8-7.0) % Basophils % (Manual) 0 L (0.2-1.2) Metamyelocytes % 1 Platelet Estimate Decreased Plt Morphology Comment Normal Polychromasia 1+ slight Anisocytosis 1+ slight Target Cells Moderate Ovalocytes Few Acanthocytes (Spur) Few Rouleaux 1+ slight RBC Morph Comment Not Reportable PT 15.3 H (9.5-12.1) SECONDS INR 1.41 D-Dimer, Quantitative (0.19-0.50) mg/L Puncture Site ABG pH (7.35-7.45) ABG pCO2 (35.0-45.0) mmHg ABG pO2 (80.0-100.0) mmHg ABG HCO3 (22.0-26.0) meq/L ABG O2 Saturation (96.0-97.0) % ABG Base Excess (-2-2.0) A-a Gradient mmHg O2 Delivery Device FiO2 (21.00-100.00) % Sodium 139 (136-145) mEq/L Potassium 2.8 L (3.5-5.1) mEq/L Chloride 99 (98-107) mEq/L Carbon Dioxide 31 (21-32) mEq/L Anion Gap 11.8 (5-15) BUN 4 L (7-18) mg/dL Creatinine 0.8 (0.7-1.3) mg/dL Est Cr Clr Drug Dosing TNP Estimated GFR (MDRD) > 60 (>60) mL/min BUN/Creatinine Ratio 5.0 L (14-18) Glucose 152 H (74-106) mg/dL Lactic Acid (0.4-2.0) mmol/L Calcium 7.4 L (8.5-10.1) mg/dL Magnesium 1.6 L (1.8-2.4) mg/dl Total Bilirubin 5.2 H (0.2-1.0) mg/dL AST 87 H (15-37) U/L ALT 38 (16-63) U/L Alkaline Phosphatase 112 (46-116) U/L Creatine Kinase 624 H (39-308) U/L Troponin I (0.00-0.056) ng/mL C-Reactive Protein 1.6 H* (<1.0) mg/dL NT-Pro-B Natriuret Pep (0-125) pg/mL Total Protein 8.5 H (6.4-8.2) g/dl Albumin 2.8 L (3.4-5.0) g/dl Globulin 5.7 gm/dL Albumin/Globulin Ratio 0.5 L (1-2) Lipase (73-393) U/L Urine Color (Yellow) Urine Appearance (Clear) Urine pH (5.0-8.0) Ur Specific [place] (1.005-1.030) Urine Protein (Negative) Urine Glucose (UA) (Negative) Urine Ketones (Negative) Urine Occult Blood (Negative) Urine Nitrite (Negative) Urine Bilirubin (Negative) Urine Urobilinogen (0.2-1.0) Ur Leukocyte Esterase (Negative) Urine Opiates Screen (NEGATIVE) Ur Buprenorphine Scrn (NEGATIVE) Ur Oxycodone Screen (NEGATIVE) Urine Methadone Screen (NEGATIVE) Ur Propoxyphene Screen (NEGATIVE) Ur Barbiturates Screen (NEGATIVE) Ur Tricyclics Screen (NEGATIVE) Ur Phencyclidine Scrn (NEGATIVE) Ur Amphetamine Screen (NEGATIVE) U Methamphetamines Scrn (NEGATIVE) U Benzodiazepines Scrn (NEGATIVE) U Cocaine Metab Screen (NEGATIVE) U Marijuana (THC) Screen (NEGATIVE) Ethyl Alcohol 0.44 (0.00) gm% Ketones (0.0-0.3) mM 04/13/18 04/13/18 04/13/18 Range/Units 09:00 09:00 09:25 WBC (4.23-9.07) K/mm3 RBC (4.63-6.08) M/mm3 Hgb (13.7-17.5) gm/L Hct (40.1-51.0) % MCV (79.0-92.2) fl MCH (25.7-32.2) pg MCHC (32.2-35.5) g/dl RDW Std Deviation (35.1-43.9) fL Plt Count (163-337) K/mm3 MPV (9.4-12.3) fl Neutrophils % (Manual) (40-60) % Band Neutrophils % (0-10) % Lymphocytes % (Manual) (20-40) % Atypical Lymphs % % Monocytes % (Manual) (2-10) % Eosinophils % (Manual) (0.8-7.0) % Basophils % (Manual) (0.2-1.2) Metamyelocytes % Platelet Estimate Plt Morphology Comment Polychromasia Anisocytosis Target Cells Ovalocytes Acanthocytes (Spur) Rouleaux RBC Morph Comment PT (9.5-12.1) SECONDS INR D-Dimer, Quantitative (0.19-0.50) mg/L Puncture Site ABG pH (7.35-7.45) ABG pCO2 (35.0-45.0) mmHg ABG pO2 (80.0-100.0) mmHg ABG HCO3 (22.0-26.0) meq/L ABG O2 Saturation (96.0-97.0) % ABG Base Excess (-2-2.0) A-a Gradient mmHg O2 Delivery Device FiO2 (21.00-100.00) % Sodium (136-145) mEq/L Potassium (3.5-5.1) mEq/L Chloride (98-107) mEq/L Carbon Dioxide (21-32) mEq/L Anion Gap (5-15) BUN (7-18) mg/dL Creatinine (0.7-1.3) mg/dL Est Cr Clr Drug Dosing Estimated GFR (MDRD) (>60) mL/min BUN/Creatinine Ratio (14-18) Glucose (74-106) mg/dL Lactic Acid 2.9 H (0.4-2.0) mmol/L Calcium (8.5-10.1) mg/dL Magnesium (1.8-2.4) mg/dl Total Bilirubin (0.2-1.0) mg/dL AST (15-37) U/L ALT (16-63) U/L Alkaline Phosphatase (46-116) U/L Creatine Kinase (39-308) U/L Troponin I (0.00-0.056) ng/mL C-Reactive Protein (<1.0) mg/dL NT-Pro-B Natriuret Pep (0-125) pg/mL Total Protein (6.4-8.2) g/dl Albumin (3.4-5.0) g/dl Globulin gm/dL Albumin/Globulin Ratio (1-2) Lipase 731 H (73-393) U/L Urine Color (Yellow) Urine Appearance (Clear) Urine pH (5.0-8.0) Ur Specific [place] (1.005-1.030) Urine Protein (Negative) Urine Glucose (UA) (Negative) Urine Ketones (Negative) Urine Occult Blood (Negative) Urine Nitrite (Negative) Urine Bilirubin (Negative) Urine Urobilinogen (0.2-1.0) Ur Leukocyte Esterase (Negative) Urine Opiates Screen (NEGATIVE) Ur Buprenorphine Scrn (NEGATIVE) Ur Oxycodone Screen (NEGATIVE) Urine Methadone Screen (NEGATIVE) Ur Propoxyphene Screen (NEGATIVE) Ur Barbiturates Screen (NEGATIVE) Ur Tricyclics Screen (NEGATIVE) Ur Phencyclidine Scrn (NEGATIVE) Ur Amphetamine Screen (NEGATIVE) U Methamphetamines Scrn (NEGATIVE) U Benzodiazepines Scrn (NEGATIVE) U Cocaine Metab Screen (NEGATIVE) U Marijuana (THC) Screen (NEGATIVE) Ethyl Alcohol (0.00) gm% Ketones 0.19 (0.0-0.3) mM 04/13/18 04/13/18 04/13/18 Range/Units 17:50 17:50 18:25 WBC (4.23-9.07) K/mm3 RBC (4.63-6.08) M/mm3 Hgb (13.7-17.5) gm/L Hct (40.1-51.0) % MCV (79.0-92.2) fl MCH (25.7-32.2) pg MCHC (32.2-35.5) g/dl RDW Std Deviation (35.1-43.9) fL Plt Count (163-337) K/mm3 MPV (9.4-12.3) fl Neutrophils % (Manual) (40-60) % Band Neutrophils % (0-10) % Lymphocytes % (Manual) (20-40) % Atypical Lymphs % % Monocytes % (Manual) (2-10) % Eosinophils % (Manual) (0.8-7.0) % Basophils % (Manual) (0.2-1.2) Metamyelocytes % Platelet Estimate Plt Morphology Comment Polychromasia Anisocytosis Target Cells Ovalocytes Acanthocytes (Spur) Rouleaux RBC Morph Comment PT (9.5-12.1) SECONDS INR D-Dimer, Quantitative (0.19-0.50) mg/L Puncture Site Lt radial ABG pH 7.51 H (7.35-7.45) ABG pCO2 38.3 (35.0-45.0) mmHg ABG pO2 53.0 L (80.0-100.0) mmHg ABG HCO3 30.3 H (22.0-26.0) meq/L ABG O2 Saturation 80.2 L (96.0-97.0) % ABG Base Excess 7.0 H (-2-2.0) A-a Gradient 34 mmHg O2 Delivery Device Room air FiO2 21.00 (21.00-100.00) % Sodium (136-145) mEq/L Potassium (3.5-5.1) mEq/L Chloride (98-107) mEq/L Carbon Dioxide (21-32) mEq/L Anion Gap (5-15) BUN (7-18) mg/dL Creatinine (0.7-1.3) mg/dL Est Cr Clr Drug Dosing Estimated GFR (MDRD) (>60) mL/min BUN/Creatinine Ratio (14-18) Glucose (74-106) mg/dL Lactic Acid (0.4-2.0) mmol/L Calcium (8.5-10.1) mg/dL Magnesium (1.8-2.4) mg/dl Total Bilirubin (0.2-1.0) mg/dL AST (15-37) U/L ALT (16-63) U/L Alkaline Phosphatase (46-116) U/L Creatine Kinase (39-308) U/L Troponin I (0.00-0.056) ng/mL C-Reactive Protein (<1.0) mg/dL NT-Pro-B Natriuret Pep (0-125) pg/mL Total Protein (6.4-8.2) g/dl Albumin (3.4-5.0) g/dl Globulin gm/dL Albumin/Globulin Ratio (1-2) Lipase (73-393) U/L Urine Color [place] H (Yellow) Urine Appearance Clear (Clear) Urine pH 6.0 (5.0-8.0) Ur Specific [place] 1.025 (1.005-1.030) Urine Protein Trace H (Negative) Urine Glucose (UA) Trace H (Negative) Urine Ketones Trace H (Negative) Urine Occult Blood Negative (Negative) Urine Nitrite Negative (Negative) Urine Bilirubin 2+ H (Negative) Urine Urobilinogen >=8.0 H (0.2-1.0) Ur Leukocyte Esterase Negative (Negative) Urine Opiates Screen Negative (NEGATIVE) Ur Buprenorphine Scrn Negative (NEGATIVE) Ur Oxycodone Screen Negative (NEGATIVE) Urine Methadone Screen Negative (NEGATIVE) Ur Propoxyphene Screen Negative (NEGATIVE) Ur Barbiturates Screen Negative (NEGATIVE) Ur Tricyclics Screen Negative (NEGATIVE) Ur Phencyclidine Scrn Negative (NEGATIVE) Ur Amphetamine Screen Negative (NEGATIVE) U Methamphetamines Scrn Negative (NEGATIVE) U Benzodiazepines Scrn Negative (NEGATIVE) U Cocaine Metab Screen Negative (NEGATIVE) U Marijuana (THC) Screen Negative (NEGATIVE) Ethyl Alcohol (0.00) gm% Ketones (0.0-0.3) mM 04/13/18 04/13/18 04/13/18 Range/Units 18:25 18:25 18:25 WBC (4.23-9.07) K/mm3 RBC (4.63-6.08) M/mm3 Hgb (13.7-17.5) gm/L Hct (40.1-51.0) % MCV (79.0-92.2) fl MCH (25.7-32.2) pg MCHC (32.2-35.5) g/dl RDW Std Deviation (35.1-43.9) fL Plt Count (163-337) K/mm3 MPV (9.4-12.3) fl Neutrophils % (Manual) (40-60) % Band Neutrophils % (0-10) % Lymphocytes % (Manual) (20-40) % Atypical Lymphs % % Monocytes % (Manual) (2-10) % Eosinophils % (Manual) (0.8-7.0) % Basophils % (Manual) (0.2-1.2) Metamyelocytes % Platelet Estimate Plt Morphology Comment Polychromasia Anisocytosis Target Cells Ovalocytes Acanthocytes (Spur) Rouleaux RBC Morph Comment PT (9.5-12.1) SECONDS INR D-Dimer, Quantitative 5.75 H (0.19-0.50) mg/L Puncture Site ABG pH (7.35-7.45) ABG pCO2 (35.0-45.0) mmHg ABG pO2 (80.0-100.0) mmHg ABG HCO3 (22.0-26.0) meq/L ABG O2 Saturation (96.0-97.0) % ABG Base Excess (-2-2.0) A-a Gradient mmHg O2 Delivery Device FiO2 (21.00-100.00) % Sodium (136-145) mEq/L Potassium (3.5-5.1) mEq/L Chloride (98-107) mEq/L Carbon Dioxide (21-32) mEq/L Anion Gap (5-15) BUN (7-18) mg/dL Creatinine (0.7-1.3) mg/dL Est Cr Clr Drug Dosing Estimated GFR (MDRD) (>60) mL/min BUN/Creatinine Ratio (14-18) Glucose (74-106) mg/dL Lactic Acid (0.4-2.0) mmol/L Calcium (8.5-10.1) mg/dL Magnesium (1.8-2.4) mg/dl Total Bilirubin (0.2-1.0) mg/dL AST (15-37) U/L ALT (16-63) U/L Alkaline Phosphatase (46-116) U/L Creatine Kinase (39-308) U/L Troponin I 0.045 (0.00-0.056) ng/mL C-Reactive Protein (<1.0) mg/dL NT-Pro-B Natriuret Pep 26 (0-125) pg/mL Total Protein (6.4-8.2) g/dl Albumin (3.4-5.0) g/dl Globulin gm/dL Albumin/Globulin Ratio (1-2) Lipase (73-393) U/L Urine Color (Yellow) Urine Appearance (Clear) Urine pH (5.0-8.0) Ur Specific [place] (1.005-1.030) Urine Protein (Negative) Urine Glucose (UA) (Negative) Urine Ketones (Negative) Urine Occult Blood (Negative) Urine Nitrite (Negative) Urine Bilirubin (Negative) Urine Urobilinogen (0.2-1.0) Ur Leukocyte Esterase (Negative) Urine Opiates Screen (NEGATIVE) Ur Buprenorphine Scrn (NEGATIVE) Ur Oxycodone Screen (NEGATIVE) Urine Methadone Screen (NEGATIVE) Ur Propoxyphene Screen (NEGATIVE) Ur Barbiturates Screen (NEGATIVE) Ur Tricyclics Screen (NEGATIVE) Ur Phencyclidine Scrn (NEGATIVE) Ur Amphetamine Screen (NEGATIVE) U Methamphetamines Scrn (NEGATIVE) U Benzodiazepines Scrn (NEGATIVE) U Cocaine Metab Screen (NEGATIVE) U Marijuana (THC) Screen (NEGATIVE) Ethyl Alcohol (0.00) gm% Ketones (0.0-0.3) mM 04/13/18 Range/Units 18:35 WBC (4.23-9.07) K/mm3 RBC (4.63-6.08) M/mm3 Hgb (13.7-17.5) gm/L Hct (40.1-51.0) % MCV (79.0-92.2) fl MCH (25.7-32.2) pg MCHC (32.2-35.5) g/dl RDW Std Deviation (35.1-43.9) fL Plt Count (163-337) K/mm3 MPV (9.4-12.3) fl Neutrophils % (Manual) (40-60) % Band Neutrophils % (0-10) % Lymphocytes % (Manual) (20-40) % Atypical Lymphs % % Monocytes % (Manual) (2-10) % Eosinophils % (Manual) (0.8-7.0) % Basophils % (Manual) (0.2-1.2) Metamyelocytes % Platelet Estimate Plt Morphology Comment Polychromasia Anisocytosis Target Cells Ovalocytes Acanthocytes (Spur) Rouleaux RBC Morph Comment PT (9.5-12.1) SECONDS INR D-Dimer, Quantitative (0.19-0.50) mg/L Puncture Site ABG pH (7.35-7.45) ABG pCO2 (35.0-45.0) mmHg ABG pO2 (80.0-100.0) mmHg ABG HCO3 (22.0-26.0) meq/L ABG O2 Saturation (96.0-97.0) % ABG Base Excess (-2-2.0) A-a Gradient mmHg O2 Delivery Device FiO2 (21.00-100.00) % Sodium (136-145) mEq/L Potassium (3.5-5.1) mEq/L Chloride (98-107) mEq/L Carbon Dioxide (21-32) mEq/L Anion Gap (5-15) BUN (7-18) mg/dL Creatinine (0.7-1.3) mg/dL Est Cr Clr Drug Dosing Estimated GFR (MDRD) (>60) mL/min BUN/Creatinine Ratio (14-18) Glucose (74-106) mg/dL Lactic Acid (0.4-2.0) mmol/L Calcium (8.5-10.1) mg/dL Magnesium (1.8-2.4) mg/dl Total Bilirubin (0.2-1.0) mg/dL AST (15-37) U/L ALT (16-63) U/L Alkaline Phosphatase (46-116) U/L Creatine Kinase (39-308) U/L Troponin I (0.00-0.056) ng/mL C-Reactive Protein (<1.0) mg/dL NT-Pro-B Natriuret Pep (0-125) pg/mL Total Protein (6.4-8.2) g/dl Albumin (3.4-5.0) g/dl Globulin gm/dL Albumin/Globulin Ratio (1-2) Lipase (73-393) U/L Urine Color (Yellow) Urine Appearance (Clear) Urine pH (5.0-8.0) Ur Specific [place] (1.005-1.030) Urine Protein (Negative) Urine Glucose (UA) (Negative) Urine Ketones (Negative) Urine Occult Blood (Negative) Urine Nitrite (Negative) Urine Bilirubin (Negative) Urine Urobilinogen (0.2-1.0) Ur Leukocyte Esterase (Negative) Urine Opiates Screen (NEGATIVE) Ur Buprenorphine Scrn (NEGATIVE) Ur Oxycodone Screen (NEGATIVE) Urine Methadone Screen (NEGATIVE) Ur Propoxyphene Screen (NEGATIVE) Ur Barbiturates Screen (NEGATIVE) Ur Tricyclics Screen (NEGATIVE) Ur Phencyclidine Scrn (NEGATIVE) Ur Amphetamine Screen (NEGATIVE) U Methamphetamines Scrn (NEGATIVE) U Benzodiazepines Scrn (NEGATIVE) U Cocaine Metab Screen (NEGATIVE) U Marijuana (THC) Screen (NEGATIVE) Ethyl Alcohol 0.28 (0.00) gm% Ketones (0.0-0.3) mM Result Diagrams: 04/13/18 09:00 04/13/18 09:00 *Q Meaningful Use (ADM) - VTE Risk Assess *Q Each Risk Factor Represents 1 Point: Age 41 - 59 years Total Score 1 Point Risk Factors: 1 - Problem List (1) Hemothorax, traumatic SNOMED Code(s): 67894853 ICD Code: S27.1XXA - TRAUMATIC HEMOTHORAX, INITIAL ENCOUNTER Status: Acute Current Visit: Yes Problem List Initiated/Reviewed/Updated: Yes Orders Last 24hrs: Active Orders 24 hr Category Date Time Status EKG Documentation Completion [RC] STAT Care 04/13/18 09:07 Active Oxygen Therapy [RC] ASDIRECTED Care 04/13/18 09:15 Active Chest 1V Frontal [CR] Stat Exams 04/13/18 18:37 Taken Chest 1V Frontal [CR] Stat Exams 04/13/18 22:00 Ordered Chest PE [Ang Chest] [CT] Stat Exams 04/13/18 19:03 Taken AMMONIA VENOUS [CHEM] Stat Lab 04/13/18 21:49 Ordered CULTURE BLOOD [BC] Stat Lab 04/13/18 21:06 Received CULTURE BLOOD [BC] Stat Lab 04/13/18 21:12 Received Dextrose 5%-0.9% NaCl [Dextrose 5%-Normal Saline] 1,000 Med 04/13/18 16:00 Active ml IV ASDIRECTED Dextrose 5%-Lactated Ringers 1,000 ml Med 04/13/18 09:15 Active IV ASDIRECTED Dextrose 5%-Lactated Ringers 1,000 ml Med 04/13/18 11:45 Active IV ASDIRECTED Blood Culture x2 Reflex Set [OM.PC] Stat Oth 04/13/18 20:40 Ordered Medication Orders Dextrose/Lactated Ringer's (Dextrose 5%-Lactated Ringers) 1,000 mls @ 999 mls/ hr IV ASDIRECTED PERLA Last Admin: 04/13/18 09:20 Dose: 999 mls/hr Dextrose/Lactated Ringer's (Dextrose 5%-Lactated Ringers) 1,000 mls @ 250 mls/ hr IV ASDIRECTED PERLA Last Admin: 04/13/18 11:35 Dose: 250 mls/hr Dextrose/Sodium Chloride (Dextrose 5%-Normal Saline) 1,000 mls @ 250 mls/hr IV ASDIRECTED PERLA Last Admin: 04/13/18 16:17 Dose: 250 mls/hr Assessment/Plan Comment:: 43-year-old male with traumatic hemothorax on left with associated rib fractures. Chest tube was inserted at the bedside. Patient had approximately 650 mL of blood immediately evacuated from the chest. - Admit to ICU for continued monitoring. - IV pain control with when necessary morphine. - Clear liquid diet - IVF with NS @80 - Daily CXR to monitor Chest tube - CBC and CMP in AM Mary Ann Vance MD General surgery
[2018-04-13] MEDS: Sodium Chloride 0.9% 1,000 ML IV SCH (22:12)
--- NOTE | 2018-04-13 22:24 | PCM.PRNOTE ---
- Free Text/Narrative Note: Operative Report Date of procedure: April 13, 2018 Preprocedure diagnosis: Traumatic hemothorax Postprocedure diagnosis: same Surgeon: Dr. Mary Ann Vance Anesthesia: Local anesthetic with 1% lidocaine Case Packer And Sealer: . None Estimated blood loss: 650 mL (most was present in the chest and evacuated upon placement of the chest tube) IV fluids: None Urine output: N/A Drains and lines: 40F Chest tube on the left Indication for the procedure: The patient is a 43-year-old man who presented to the emergency department after he was found unresponsive in his home. He underwent examination by the emergency room physician and was found to have multiple rib fractures as well as an effusion on the left side. This was consistent with a traumatic hemothorax. I discussed with the patient placing a chest tube to evacuate this blood. Risk of damage to the tissue was discussed and patient agreed to the procedure Description of the procedure: After informed consent was obtained, the patient was positioned on the table and prepped and draped in standard surgical fashion. A surgical timeout was performed. We began by injecting lidocaine in the area of the incision. The skin was then incised using a 15 blade scalpel down to subcutaneous fat and deepened down towards the level of the intercostal muscles. More lidocaine was injected at this level. Blunt dissection was then used to dissect the tissue and the curved 8 instrument was used to enter the pleura. Upon entry through the pleura, there was immediately a return of a large amount of blood. A 40 Wolof chest tube was then placed through this space into the pleural cavity. It was secured to the chest using an 0 silk suture. A occlusive sterile dressing was then applied. An upright one view chest x-ray was then used to confirm correct placement of the chest tube. Complications: None apparent. Disposition: Stable in the emergency room trauma bay Mary Ann Vance MD General Surgery
[2018-04-13] MEDS: Heparin Sodium 5,000 Units/ML Vial SUBCUT SCH (23:26)
[2018-04-13] MEDS: Morphine 2 MG/ML Syringe IVPUSH PRN (23:26)
[2018-04-14] MEDS: oxyCODONE 5 MG Tab PO PRN ×6 (00:09→23:03)
[2018-04-14] MEDS: Morphine 2 MG/ML Syringe IVPUSH PRN ×8 (03:45→21:37)
[2018-04-14] MEDS: Ampicillin/Sulbactam Na 3 GM in Sodium Chloride 0.9% 100 ML IV SCH ×4 (03:45→21:34)
[2018-04-14] MEDS ORDERED: Morphine 2 MG/ML Syringe IVPUSH PRN (07:36)
[2018-04-14] MEDS: Heparin Sodium 5,000 Units/ML Vial SUBCUT SCH (07:37)
--- NOTE | 2018-04-14 07:41 | CR ---
Chest: Portable view of the chest was obtained. Comparison: Prior chest x-ray of 04/13/18. Findings: Heart size is slightly enlarged. Increasing density within the left base is seen most likely representing increasing pleural effusion. At least one left lower rib fracture is seen. Right lung is clear. Mild atelectasis seen within the left chest. Impression: 1. Increasing density within the left base from prior chest x-ray compatible with pleural effusion. Mild atelectasis also noted within the left lung. 2. Slight cardiomegaly. 3. At least one left lower rib fracture is seen. Diagnostic code #3
--- NOTE | 2018-04-14 07:41 | CT ---
CT chest Technique: Multiple axial sections through the chest were obtained. Study performed as a pulmonary angiogram protocol. Pulmonary arteries are not opacified with contrast remaining within the superior vena cava. Findings: Moderate sized left-sided pleural effusion is seen. Slightly displaced fracture is seen within the posterolateral left sixth rib. Mildly displaced fracture is noted within the posterolateral left seventh rib. Nondisplaced fracture noted posteriorly within the left eighth rib as well as mildly displaced fracture noted posterolaterally within the left eighth rib. Additional nondisplaced fracture noted posteriorly within the left ninth rib as well as well as a nondisplaced posterior 10th rib fracture. The left 11th rib shows fracturing near the costovertebral junction as well as posteriorly showing slight displacement. No right-sided rib fractures are seen. No thoracic spine fracture is definitely appreciated. Atelectasis seen within the left base. Mild atelectasis is noted within the right middle lobe adjacent to the major fissure. No pneumothorax is seen. Heart is enlarged. Mediastinum and hilar regions show no adenopathy or mass. No axillary adenopathy is seen. Impression: 1. Areas of atelectasis as noted above. 2. Moderately large left-sided pleural effusion. 3. Multiple left-sided rib fractures are noted with some rib showing fracturing in 2 places. Note: Suboptimal opacification of the pulmonary arteries, study is nondiagnostic for pulmonary embolism. Diagnostic code #3 Agree with preliminary report issued by [facility] ([facility] preliminary report dictated on 04/13/18, 9:19 PM Central Time)
--- NOTE | 2018-04-14 07:41 | CR ---
Chest: Portable view of the chest was obtained. Comparison: Prior chest x-ray performed earlier on the same day (7:[address] performed on the same day 7:42 PM). Left-sided chest tube has been placed. Previous pleural effusion has diminished. Minimal right basilar atelectasis is seen. Small amount of air is seen within the left chest wall. Rib fractures noted on CT exam are not as well identified on plain film exam. Heart size is accentuated from portable technique but felt to be slightly enlarged. Impression: 1. Left-sided chest tube with majority of left-sided pleural effusion having been removed. 2. Other incidental findings as noted above. Diagnostic code #3
--- NOTE | 2018-04-14 07:43 | PCM.SURGPN ---
- General Info Date of Service: 04/14/18 Date of Surgery/Procedure: 04/13/18 POD#: 1 Admission Diagnosis/Problem: Hemothorax on left Functional Status: Reports: Pain Controlled - Patient Data Vitals - Most Recent: Last Vital Signs Temp 37.4 C 04/14/18 04:00 Pulse 108 H 04/13/18 18:49 Resp 21 H 04/14/18 04:00 BP 128/80 04/14/18 04:00 Pulse Ox 92 L 04/14/18 04:00 Weight - Most Recent: 120.837 kg I&O - Last 24 Hours: Intake & Output 04/13/18 04/14/18 04/14/18 22:59 06:59 14:59 Intake Total 1337 Output Total 300 230 Balance -300 1107 Lab Results Last 24 Hrs: Laboratory Results - last 24 hr 04/13/18 04/13/18 04/13/18 Range/Units 09:00 09:00 09:00 WBC 5.91 (4.23-9.07) K/mm3 RBC 3.73 L (4.63-6.08) M/mm3 Hgb 10.1 L (13.7-17.5) gm/L Hct 32.1 L (40.1-51.0) % MCV 86.1 (79.0-92.2) fl MCH 27.1 (25.7-32.2) pg MCHC 31.5 L (32.2-35.5) g/dl RDW Std Deviation 51.2 H (35.1-43.9) fL Plt Count 117 L (163-337) K/mm3 MPV 10.3 (9.4-12.3) fl Neut % (Auto) (34.0-67.9) % Lymph % (Auto) (21.8-53.1) % [place] % (Auto) (5.3-12.2) % Eos % (Auto) (0.8-7.0) Baso % (Auto) (0.1-1.2) % Neut # (Auto) (1.78-5.38) K/mm3 Lymph # (Auto) (1.32-3.57) K/mm3 [place] # (Auto) (0.30-0.82) K/mm3 Eos # (Auto) (0.04-0.54) K/mm3 Baso # (Auto) (0.01-0.08) K/mm3 Neutrophils % (Manual) 54 (40-60) % Band Neutrophils % 2 (0-10) % Lymphocytes % (Manual) 35 (20-40) % Atypical Lymphs % 1 % Monocytes % (Manual) 5 (2-10) % Eosinophils % (Manual) 2 (0.8-7.0) % Basophils % (Manual) 0 L (0.2-1.2) Metamyelocytes % 1 Manual Slide Review Platelet Estimate Decreased Plt Morphology Comment Normal Polychromasia 1+ slight Anisocytosis 1+ slight Target Cells Moderate Ovalocytes Few Acanthocytes (Spur) Few Rouleaux 1+ slight RBC Morph Comment Not Reportable PT 15.3 H (9.5-12.1) SECONDS INR 1.41 D-Dimer, Quantitative (0.19-0.50) mg/L Puncture Site ABG pH (7.35-7.45) ABG pCO2 (35.0-45.0) mmHg ABG pO2 (80.0-100.0) mmHg ABG HCO3 (22.0-26.0) meq/L ABG O2 Saturation (96.0-97.0) % ABG Base Excess (-2-2.0) A-a Gradient mmHg O2 Delivery Device FiO2 (21.00-100.00) % Sodium 139 (136-145) mEq/L Potassium 2.8 L (3.5-5.1) mEq/L Chloride 99 (98-107) mEq/L Carbon Dioxide 31 (21-32) mEq/L Anion Gap 11.8 (5-15) BUN 4 L (7-18) mg/dL Creatinine 0.8 (0.7-1.3) mg/dL Est Cr Clr Drug Dosing TNP Estimated GFR (MDRD) > 60 (>60) mL/min BUN/Creatinine Ratio 5.0 L (14-18) Glucose 152 H (74-106) mg/dL Lactic Acid (0.4-2.0) mmol/L Calcium 7.4 L (8.5-10.1) mg/dL Magnesium 1.6 L (1.8-2.4) mg/dl Total Bilirubin 5.2 H (0.2-1.0) mg/dL AST 87 H (15-37) U/L ALT 38 (16-63) U/L Alkaline Phosphatase 112 (46-116) U/L Ammonia (11-32) umol/L Creatine Kinase 624 H (39-308) U/L Troponin I (0.00-0.056) ng/mL C-Reactive Protein 1.6 H* (<1.0) mg/dL NT-Pro-B Natriuret Pep (0-125) pg/mL Total Protein 8.5 H (6.4-8.2) g/dl Albumin 2.8 L (3.4-5.0) g/dl Globulin 5.7 gm/dL Albumin/Globulin Ratio 0.5 L (1-2) Lipase (73-393) U/L Urine Color (Yellow) Urine Appearance (Clear) Urine pH (5.0-8.0) Ur Specific [place] (1.005-1.030) Urine Protein (Negative) Urine Glucose (UA) (Negative) Urine Ketones (Negative) Urine Occult Blood (Negative) Urine Nitrite (Negative) Urine Bilirubin (Negative) Urine Urobilinogen (0.2-1.0) Ur Leukocyte Esterase (Negative) Urine Opiates Screen (NEGATIVE) Ur Buprenorphine Scrn (NEGATIVE) Ur Oxycodone Screen (NEGATIVE) Urine Methadone Screen (NEGATIVE) Ur Propoxyphene Screen (NEGATIVE) Ur Barbiturates Screen (NEGATIVE) Ur Tricyclics Screen (NEGATIVE) Ur Phencyclidine Scrn (NEGATIVE) Ur Amphetamine Screen (NEGATIVE) U Methamphetamines Scrn (NEGATIVE) U Benzodiazepines Scrn (NEGATIVE) U Cocaine Metab Screen (NEGATIVE) U Marijuana (THC) Screen (NEGATIVE) Ethyl Alcohol 0.44 (0.00) gm% Ketones (0.0-0.3) mM 04/13/18 04/13/18 04/13/18 Range/Units 09:00 09:00 09:25 WBC (4.23-9.07) K/mm3 RBC (4.63-6.08) M/mm3 Hgb (13.7-17.5) gm/L Hct (40.1-51.0) % MCV (79.0-92.2) fl MCH (25.7-32.2) pg MCHC (32.2-35.5) g/dl RDW Std Deviation (35.1-43.9) fL Plt Count (163-337) K/mm3 MPV (9.4-12.3) fl Neut % (Auto) (34.0-67.9) % Lymph % (Auto) (21.8-53.1) % [place] % (Auto) (5.3-12.2) % Eos % (Auto) (0.8-7.0) Baso % (Auto) (0.1-1.2) % Neut # (Auto) (1.78-5.38) K/mm3 Lymph # (Auto) (1.32-3.57) K/mm3 [place] # (Auto) (0.30-0.82) K/mm3 Eos # (Auto) (0.04-0.54) K/mm3 Baso # (Auto) (0.01-0.08) K/mm3 Neutrophils % (Manual) (40-60) % Band Neutrophils % (0-10) % Lymphocytes % (Manual) (20-40) % Atypical Lymphs % % Monocytes % (Manual) (2-10) % Eosinophils % (Manual) (0.8-7.0) % Basophils % (Manual) (0.2-1.2) Metamyelocytes % Manual Slide Review Platelet Estimate Plt Morphology Comment Polychromasia Anisocytosis Target Cells Ovalocytes Acanthocytes (Spur) Rouleaux RBC Morph Comment PT (9.5-12.1) SECONDS INR D-Dimer, Quantitative (0.19-0.50) mg/L Puncture Site ABG pH (7.35-7.45) ABG pCO2 (35.0-45.0) mmHg ABG pO2 (80.0-100.0) mmHg ABG HCO3 (22.0-26.0) meq/L ABG O2 Saturation (96.0-97.0) % ABG Base Excess (-2-2.0) A-a Gradient mmHg O2 Delivery Device FiO2 (21.00-100.00) % Sodium (136-145) mEq/L Potassium (3.5-5.1) mEq/L Chloride (98-107) mEq/L Carbon Dioxide (21-32) mEq/L Anion Gap (5-15) BUN (7-18) mg/dL Creatinine (0.7-1.3) mg/dL Est Cr Clr Drug Dosing Estimated GFR (MDRD) (>60) mL/min BUN/Creatinine Ratio (14-18) Glucose (74-106) mg/dL Lactic Acid 2.9 H (0.4-2.0) mmol/L Calcium (8.5-10.1) mg/dL Magnesium (1.8-2.4) mg/dl Total Bilirubin (0.2-1.0) mg/dL AST (15-37) U/L ALT (16-63) U/L Alkaline Phosphatase (46-116) U/L Ammonia (11-32) umol/L Creatine Kinase (39-308) U/L Troponin I (0.00-0.056) ng/mL C-Reactive Protein (<1.0) mg/dL NT-Pro-B Natriuret Pep (0-125) pg/mL Total Protein (6.4-8.2) g/dl Albumin (3.4-5.0) g/dl Globulin gm/dL Albumin/Globulin Ratio (1-2) Lipase 731 H (73-393) U/L Urine Color (Yellow) Urine Appearance (Clear) Urine pH (5.0-8.0) Ur Specific [place] (1.005-1.030) Urine Protein (Negative) Urine Glucose (UA) (Negative) Urine Ketones (Negative) Urine Occult Blood (Negative) Urine Nitrite (Negative) Urine Bilirubin (Negative) Urine Urobilinogen (0.2-1.0) Ur Leukocyte Esterase (Negative) Urine Opiates Screen (NEGATIVE) Ur Buprenorphine Scrn (NEGATIVE) Ur Oxycodone Screen (NEGATIVE) Urine Methadone Screen (NEGATIVE) Ur Propoxyphene Screen (NEGATIVE) Ur Barbiturates Screen (NEGATIVE) Ur Tricyclics Screen (NEGATIVE) Ur Phencyclidine Scrn (NEGATIVE) Ur Amphetamine Screen (NEGATIVE) U Methamphetamines Scrn (NEGATIVE) U Benzodiazepines Scrn (NEGATIVE) U Cocaine Metab Screen (NEGATIVE) U Marijuana (THC) Screen (NEGATIVE) Ethyl Alcohol (0.00) gm% Ketones 0.19 (0.0-0.3) mM 04/13/18 04/13/18 04/13/18 Range/Units 17:50 17:50 18:25 WBC (4.23-9.07) K/mm3 RBC (4.63-6.08) M/mm3 Hgb (13.7-17.5) gm/L Hct (40.1-51.0) % MCV (79.0-92.2) fl MCH (25.7-32.2) pg MCHC (32.2-35.5) g/dl RDW Std Deviation (35.1-43.9) fL Plt Count (163-337) K/mm3 MPV (9.4-12.3) fl Neut % (Auto) (34.0-67.9) % Lymph % (Auto) (21.8-53.1) % [place] % (Auto) (5.3-12.2) % Eos % (Auto) (0.8-7.0) Baso % (Auto) (0.1-1.2) % Neut # (Auto) (1.78-5.38) K/mm3 Lymph # (Auto) (1.32-3.57) K/mm3 [place] # (Auto) (0.30-0.82) K/mm3 Eos # (Auto) (0.04-0.54) K/mm3 Baso # (Auto) (0.01-0.08) K/mm3 Neutrophils % (Manual) (40-60) % Band Neutrophils % (0-10) % Lymphocytes % (Manual) (20-40) % Atypical Lymphs % % Monocytes % (Manual) (2-10) % Eosinophils % (Manual) (0.8-7.0) % Basophils % (Manual) (0.2-1.2) Metamyelocytes % Manual Slide Review Platelet Estimate Plt Morphology Comment Polychromasia Anisocytosis Target Cells Ovalocytes Acanthocytes (Spur) Rouleaux RBC Morph Comment PT (9.5-12.1) SECONDS INR D-Dimer, Quantitative (0.19-0.50) mg/L Puncture Site Lt radial ABG pH 7.51 H (7.35-7.45) ABG pCO2 38.3 (35.0-45.0) mmHg ABG pO2 53.0 L (80.0-100.0) mmHg ABG HCO3 30.3 H (22.0-26.0) meq/L ABG O2 Saturation 80.2 L (96.0-97.0) % ABG Base Excess 7.0 H (-2-2.0) A-a Gradient 34 mmHg O2 Delivery Device Room air FiO2 21.00 (21.00-100.00) % Sodium (136-145) mEq/L Potassium (3.5-5.1) mEq/L Chloride (98-107) mEq/L Carbon Dioxide (21-32) mEq/L Anion Gap (5-15) BUN (7-18) mg/dL Creatinine (0.7-1.3) mg/dL Est Cr Clr Drug Dosing Estimated GFR (MDRD) (>60) mL/min BUN/Creatinine Ratio (14-18) Glucose (74-106) mg/dL Lactic Acid (0.4-2.0) mmol/L Calcium (8.5-10.1) mg/dL Magnesium (1.8-2.4) mg/dl Total Bilirubin (0.2-1.0) mg/dL AST (15-37) U/L ALT (16-63) U/L Alkaline Phosphatase (46-116) U/L Ammonia (11-32) umol/L Creatine Kinase (39-308) U/L Troponin I (0.00-0.056) ng/mL C-Reactive Protein (<1.0) mg/dL NT-Pro-B Natriuret Pep (0-125) pg/mL Total Protein (6.4-8.2) g/dl Albumin (3.4-5.0) g/dl Globulin gm/dL Albumin/Globulin Ratio (1-2) Lipase (73-393) U/L Urine Color [place] H (Yellow) Urine Appearance Clear (Clear) Urine pH 6.0 (5.0-8.0) Ur Specific [place] 1.025 (1.005-1.030) Urine Protein Trace H (Negative) Urine Glucose (UA) Trace H (Negative) Urine Ketones Trace H (Negative) Urine Occult Blood Negative (Negative) Urine Nitrite Negative (Negative) Urine Bilirubin 2+ H (Negative) Urine Urobilinogen >=8.0 H (0.2-1.0) Ur Leukocyte Esterase Negative (Negative) Urine Opiates Screen Negative (NEGATIVE) Ur Buprenorphine Scrn Negative (NEGATIVE) Ur Oxycodone Screen Negative (NEGATIVE) Urine Methadone Screen Negative (NEGATIVE) Ur Propoxyphene Screen Negative (NEGATIVE) Ur Barbiturates Screen Negative (NEGATIVE) Ur Tricyclics Screen Negative (NEGATIVE) Ur Phencyclidine Scrn Negative (NEGATIVE) Ur Amphetamine Screen Negative (NEGATIVE) U Methamphetamines Scrn Negative (NEGATIVE) U Benzodiazepines Scrn Negative (NEGATIVE) U Cocaine Metab Screen Negative (NEGATIVE) U Marijuana (THC) Screen Negative (NEGATIVE) Ethyl Alcohol (0.00) gm% Ketones (0.0-0.3) mM 04/13/18 04/13/18 04/13/18 Range/Units 18:25 18:25 18:25 WBC (4.23-9.07) K/mm3 RBC (4.63-6.08) M/mm3 Hgb (13.7-17.5) gm/L Hct (40.1-51.0) % MCV (79.0-92.2) fl MCH (25.7-32.2) pg MCHC (32.2-35.5) g/dl RDW Std Deviation (35.1-43.9) fL Plt Count (163-337) K/mm3 MPV (9.4-12.3) fl Neut % (Auto) (34.0-67.9) % Lymph % (Auto) (21.8-53.1) % [place] % (Auto) (5.3-12.2) % Eos % (Auto) (0.8-7.0) Baso % (Auto) (0.1-1.2) % Neut # (Auto) (1.78-5.38) K/mm3 Lymph # (Auto) (1.32-3.57) K/mm3 [place] # (Auto) (0.30-0.82) K/mm3 Eos # (Auto) (0.04-0.54) K/mm3 Baso # (Auto) (0.01-0.08) K/mm3 Neutrophils % (Manual) (40-60) % Band Neutrophils % (0-10) % Lymphocytes % (Manual) (20-40) % Atypical Lymphs % % Monocytes % (Manual) (2-10) % Eosinophils % (Manual) (0.8-7.0) % Basophils % (Manual) (0.2-1.2) Metamyelocytes % Manual Slide Review Platelet Estimate Plt Morphology Comment Polychromasia Anisocytosis Target Cells Ovalocytes Acanthocytes (Spur) Rouleaux RBC Morph Comment PT (9.5-12.1) SECONDS INR D-Dimer, Quantitative 5.75 H (0.19-0.50) mg/L Puncture Site ABG pH (7.35-7.45) ABG pCO2 (35.0-45.0) mmHg ABG pO2 (80.0-100.0) mmHg ABG HCO3 (22.0-26.0) meq/L ABG O2 Saturation (96.0-97.0) % ABG Base Excess (-2-2.0) A-a Gradient mmHg O2 Delivery Device FiO2 (21.00-100.00) % Sodium (136-145) mEq/L Potassium (3.5-5.1) mEq/L Chloride (98-107) mEq/L Carbon Dioxide (21-32) mEq/L Anion Gap (5-15) BUN (7-18) mg/dL Creatinine (0.7-1.3) mg/dL Est Cr Clr Drug Dosing Estimated GFR (MDRD) (>60) mL/min BUN/Creatinine Ratio (14-18) Glucose (74-106) mg/dL Lactic Acid (0.4-2.0) mmol/L Calcium (8.5-10.1) mg/dL Magnesium (1.8-2.4) mg/dl Total Bilirubin (0.2-1.0) mg/dL AST (15-37) U/L ALT (16-63) U/L Alkaline Phosphatase (46-116) U/L Ammonia (11-32) umol/L Creatine Kinase (39-308) U/L Troponin I 0.045 (0.00-0.056) ng/mL C-Reactive Protein (<1.0) mg/dL NT-Pro-B Natriuret Pep 26 (0-125) pg/mL Total Protein (6.4-8.2) g/dl Albumin (3.4-5.0) g/dl Globulin gm/dL Albumin/Globulin Ratio (1-2) Lipase (73-393) U/L Urine Color (Yellow) Urine Appearance (Clear) Urine pH (5.0-8.0) Ur Specific [place] (1.005-1.030) Urine Protein (Negative) Urine Glucose (UA) (Negative) Urine Ketones (Negative) Urine Occult Blood (Negative) Urine Nitrite (Negative) Urine Bilirubin (Negative) Urine Urobilinogen (0.2-1.0) Ur Leukocyte Esterase (Negative) Urine Opiates Screen (NEGATIVE) Ur Buprenorphine Scrn (NEGATIVE) Ur Oxycodone Screen (NEGATIVE) Urine Methadone Screen (NEGATIVE) Ur Propoxyphene Screen (NEGATIVE) Ur Barbiturates Screen (NEGATIVE) Ur Tricyclics Screen (NEGATIVE) Ur Phencyclidine Scrn (NEGATIVE) Ur Amphetamine Screen (NEGATIVE) U Methamphetamines Scrn (NEGATIVE) U Benzodiazepines Scrn (NEGATIVE) U Cocaine Metab Screen (NEGATIVE) U Marijuana (THC) Screen (NEGATIVE) Ethyl Alcohol (0.00) gm% Ketones (0.0-0.3) mM 04/13/18 04/13/18 04/13/18 Range/Units 18:35 22:01 23:10 WBC 5.93 (4.23-9.07) K/mm3 RBC 3.14 L (4.63-6.08) M/mm3 Hgb 8.6 L (13.7-17.5) gm/L Hct 27.4 L (40.1-51.0) % MCV 87.3 (79.0-92.2) fl MCH 27.4 (25.7-32.2) pg MCHC 31.4 L (32.2-35.5) g/dl RDW Std Deviation 52.4 H (35.1-43.9) fL Plt Count 85 L (163-337) K/mm3 MPV 9.9 (9.4-12.3) fl Neut % (Auto) 63.8 (34.0-67.9) % Lymph % (Auto) 19.1 L (21.8-53.1) % [place] % (Auto) 15.9 H (5.3-12.2) % Eos % (Auto) 0.3 L (0.8-7.0) Baso % (Auto) 0.7 (0.1-1.2) % Neut # (Auto) 3.79 (1.78-5.38) K/mm3 Lymph # (Auto) 1.13 L (1.32-3.57) K/mm3 [place] # (Auto) 0.94 H (0.30-0.82) K/mm3 Eos # (Auto) 0.02 L (0.04-0.54) K/mm3 Baso # (Auto) 0.04 (0.01-0.08) K/mm3 Neutrophils % (Manual) (40-60) % Band Neutrophils % (0-10) % Lymphocytes % (Manual) (20-40) % Atypical Lymphs % % Monocytes % (Manual) (2-10) % Eosinophils % (Manual) (0.8-7.0) % Basophils % (Manual) (0.2-1.2) Metamyelocytes % Manual Slide Review Abnormal smear Platelet Estimate Plt Morphology Comment Polychromasia Anisocytosis Target Cells Ovalocytes Acanthocytes (Spur) Rouleaux RBC Morph Comment PT (9.5-12.1) SECONDS INR D-Dimer, Quantitative (0.19-0.50) mg/L Puncture Site ABG pH (7.35-7.45) ABG pCO2 (35.0-45.0) mmHg ABG pO2 (80.0-100.0) mmHg ABG HCO3 (22.0-26.0) meq/L ABG O2 Saturation (96.0-97.0) % ABG Base Excess (-2-2.0) A-a Gradient mmHg O2 Delivery Device FiO2 (21.00-100.00) % Sodium (136-145) mEq/L Potassium (3.5-5.1) mEq/L Chloride (98-107) mEq/L Carbon Dioxide (21-32) mEq/L Anion Gap (5-15) BUN (7-18) mg/dL Creatinine (0.7-1.3) mg/dL Est Cr Clr Drug Dosing Estimated GFR (MDRD) (>60) mL/min BUN/Creatinine Ratio (14-18) Glucose (74-106) mg/dL Lactic Acid (0.4-2.0) mmol/L Calcium (8.5-10.1) mg/dL Magnesium (1.8-2.4) mg/dl Total Bilirubin (0.2-1.0) mg/dL AST (15-37) U/L ALT (16-63) U/L Alkaline Phosphatase (46-116) U/L Ammonia 82 H (11-32) umol/L Creatine Kinase (39-308) U/L Troponin I (0.00-0.056) ng/mL C-Reactive Protein (<1.0) mg/dL NT-Pro-B Natriuret Pep (0-125) pg/mL Total Protein (6.4-8.2) g/dl Albumin (3.4-5.0) g/dl Globulin gm/dL Albumin/Globulin Ratio (1-2) Lipase (73-393) U/L Urine Color (Yellow) Urine Appearance (Clear) Urine pH (5.0-8.0) Ur Specific [place] (1.005-1.030) Urine Protein (Negative) Urine Glucose (UA) (Negative) Urine Ketones (Negative) Urine Occult Blood (Negative) Urine Nitrite (Negative) Urine Bilirubin (Negative) Urine Urobilinogen (0.2-1.0) Ur Leukocyte Esterase (Negative) Urine Opiates Screen (NEGATIVE) Ur Buprenorphine Scrn (NEGATIVE) Ur Oxycodone Screen (NEGATIVE) Urine Methadone Screen (NEGATIVE) Ur Propoxyphene Screen (NEGATIVE) Ur Barbiturates Screen (NEGATIVE) Ur Tricyclics Screen (NEGATIVE) Ur Phencyclidine Scrn (NEGATIVE) Ur Amphetamine Screen (NEGATIVE) U Methamphetamines Scrn (NEGATIVE) U Benzodiazepines Scrn (NEGATIVE) U Cocaine Metab Screen (NEGATIVE) U Marijuana (THC) Screen (NEGATIVE) Ethyl Alcohol 0.28 (0.00) gm% Ketones (0.0-0.3) mM 04/14/18 04/14/18 Range/Units 05:03 05:03 WBC 5.76 (4.23-9.07) K/mm3 RBC 3.05 L (4.63-6.08) M/mm3 Hgb 8.3 L (13.7-17.5) gm/L Hct 26.7 L (40.1-51.0) % MCV 87.5 (79.0-92.2) fl MCH 27.2 (25.7-32.2) pg MCHC 31.1 L (32.2-35.5) g/dl RDW Std Deviation 52.7 H (35.1-43.9) fL Plt Count 68 L (163-337) K/mm3 MPV 9.8 (9.4-12.3) fl Neut % (Auto) 65.8 (34.0-67.9) % Lymph % (Auto) 17.2 L (21.8-53.1) % [place] % (Auto) 16.0 H (5.3-12.2) % Eos % (Auto) 0.3 L (0.8-7.0) Baso % (Auto) 0.5 (0.1-1.2) % Neut # (Auto) 3.79 (1.78-5.38) K/mm3 Lymph # (Auto) 0.99 L (1.32-3.57) K/mm3 [place] # (Auto) 0.92 H (0.30-0.82) K/mm3 Eos # (Auto) 0.02 L (0.04-0.54) K/mm3 Baso # (Auto) 0.03 (0.01-0.08) K/mm3 Neutrophils % (Manual) (40-60) % Band Neutrophils % (0-10) % Lymphocytes % (Manual) (20-40) % Atypical Lymphs % % Monocytes % (Manual) (2-10) % Eosinophils % (Manual) (0.8-7.0) % Basophils % (Manual) (0.2-1.2) Metamyelocytes % Manual Slide Review Abnormal smear Platelet Estimate Plt Morphology Comment Polychromasia Anisocytosis Target Cells Ovalocytes Acanthocytes (Spur) Rouleaux RBC Morph Comment PT (9.5-12.1) SECONDS INR D-Dimer, Quantitative (0.19-0.50) mg/L Puncture Site ABG pH (7.35-7.45) ABG pCO2 (35.0-45.0) mmHg ABG pO2 (80.0-100.0) mmHg ABG HCO3 (22.0-26.0) meq/L ABG O2 Saturation (96.0-97.0) % ABG Base Excess (-2-2.0) A-a Gradient mmHg O2 Delivery Device FiO2 (21.00-100.00) % Sodium 138 (136-145) mEq/L Potassium 2.9 L (3.5-5.1) mEq/L Chloride 100 (98-107) mEq/L Carbon Dioxide 30 (21-32) mEq/L Anion Gap 10.9 (5-15) BUN 6 L (7-18) mg/dL Creatinine 0.7 (0.7-1.3) mg/dL Est Cr Clr Drug Dosing 146.42 Estimated GFR (MDRD) > 60 (>60) mL/min BUN/Creatinine Ratio 8.6 L (14-18) Glucose 143 H (74-106) mg/dL Lactic Acid (0.4-2.0) mmol/L Calcium 7.2 L (8.5-10.1) mg/dL Magnesium (1.8-2.4) mg/dl Total Bilirubin 5.8 H (0.2-1.0) mg/dL AST 72 H (15-37) U/L ALT 31 (16-63) U/L Alkaline Phosphatase 97 (46-116) U/L Ammonia (11-32) umol/L Creatine Kinase (39-308) U/L Troponin I (0.00-0.056) ng/mL C-Reactive Protein (<1.0) mg/dL NT-Pro-B Natriuret Pep (0-125) pg/mL Total Protein 7.1 (6.4-8.2) g/dl Albumin 2.4 L (3.4-5.0) g/dl Globulin 4.7 gm/dL Albumin/Globulin Ratio 0.5 L (1-2) Lipase (73-393) U/L Urine Color (Yellow) Urine Appearance (Clear) Urine pH (5.0-8.0) Ur Specific [place] (1.005-1.030) Urine Protein (Negative) Urine Glucose (UA) (Negative) Urine Ketones (Negative) Urine Occult Blood (Negative) Urine Nitrite (Negative) Urine Bilirubin (Negative) Urine Urobilinogen (0.2-1.0) Ur Leukocyte Esterase (Negative) Urine Opiates Screen (NEGATIVE) Ur Buprenorphine Scrn (NEGATIVE) Ur Oxycodone Screen (NEGATIVE) Urine Methadone Screen (NEGATIVE) Ur Propoxyphene Screen (NEGATIVE) Ur Barbiturates Screen (NEGATIVE) Ur Tricyclics Screen (NEGATIVE) Ur Phencyclidine Scrn (NEGATIVE) Ur Amphetamine Screen (NEGATIVE) U Methamphetamines Scrn (NEGATIVE) U Benzodiazepines Scrn (NEGATIVE) U Cocaine Metab Screen (NEGATIVE) U Marijuana (THC) Screen (NEGATIVE) Ethyl Alcohol (0.00) gm% Ketones (0.0-0.3) mM Med Orders - Current: Current Medications Folic Acid (Folic Acid) 1 mg PO DAILY [facility] Sodium Chloride (Normal Saline) 1,000 mls @ 80 mls/hr IV ASDIRECTED [facility] Last Admin: 04/13/18 22:12 Dose: 80 mls/hr Ampicillin Sodium/Sulbactam (Sodium 3 gm/ Sodium Chloride) 100 mls @ 200 mls/ hr IV Q6H [facility] Last Admin: 04/14/18 03:45 Dose: 200 mls/hr Lorazepam (Ativan) 1 - 3 mg IVPUSH Q1H PRN; Protocol PRN Reason: withdrawl Miscellaneous Information (Remove Patch) 1 ea TRDERM DAILY [facility] Morphine Sulfate (Morphine) 2 mg IVPUSH Q2H PRN PRN Reason: Breakthrough Pain Morphine Sulfate (Morphine) 2 mg IVPUSH Q2H PRN PRN Reason: Breakthrough Pain Stop: 04/14/18 22:32 Multivitamins (Thera) 1 each PO DAILY [facility] Nicotine (Habitrol) 21 mg TRDERM DAILY [facility] Ondansetron HCl (Zofran) 4 mg IV Q6H PRN PRN Reason: Nausea/Vomiting Oxycodone HCl (Oxycodone) 5 mg PO Q4H PRN PRN Reason: Pain (moderate 4-6) Last Admin: 04/14/18 04:27 Dose: 5 mg Oxycodone HCl (Oxycodone) 10 mg PO Q4H PRN PRN Reason: Pain (severe 7-10) Thiamine HCl (Vitamin B-1) 100 mg PO BEDTIME [facility] Discontinued Medications Heparin Sodium (Porcine) (Heparin Sodium) 5,000 units SUBCUT Q8H [facility] Last Admin: 04/14/18 07:37 Dose: Not Given Dextrose/Lactated Ringer's (Dextrose 5%-Lactated Ringers) 1,000 mls @ 999 mls/ hr IV ASDIRECTED [facility] Last Admin: 04/13/18 09:20 Dose: 999 mls/hr Thiamine HCl 100 mg/ Sodium (Chloride) 101 mls @ 202 mls/hr IV ONETIME ONE Stop: 04/13/18 09:21 Last Admin: 04/13/18 09:36 Dose: 202 mls/hr Potassium Chloride 10 meq/ (Premix) 100 mls @ 100 mls/hr IV ONETIME ONE Stop: 04/13/18 11:54 Last Admin: 04/13/18 11:05 Dose: 100 mls/hr Dextrose/Lactated Ringer's (Dextrose 5%-Lactated Ringers) 1,000 mls @ 250 mls/ hr IV ASDIRECTED [facility] Last Admin: 04/13/18 11:35 Dose: 250 mls/hr Dextrose/Sodium Chloride (Dextrose 5%-Normal Saline) 1,000 mls @ 250 mls/hr IV ASDIRECTED [facility] Last Admin: 04/13/18 16:17 Dose: 250 mls/hr Potassium Chloride 10 meq/ (Premix) 100 mls @ 100 mls/hr IV ONETIME ONE Stop: 04/13/18 16:53 Last Admin: 04/13/18 16:17 Dose: 100 mls/hr Ampicillin Sodium/Sulbactam (Sodium 3 gm/ Sodium Chloride) 100 mls @ 200 mls/ hr IV ONETIME ONE Stop: 04/13/18 21:08 Last Admin: 04/13/18 22:18 Dose: 200 mls/hr Iopamidol (Isovue-370 (76%)) 100 ml IVPUSH ONETIME ONE Stop: 04/13/18 19:16 Last Admin: 04/13/18 20:04 Dose: 80 ml Iopamidol (Isovue-370 (76%)) 100 ml IVPUSH ONETIME ONE Stop: 04/13/18 20:04 Last Admin: 04/13/18 20:05 Dose: 80 ml Lorazepam (Ativan) 1 mg IVPUSH ONETIME ONE Stop: 04/13/18 09:07 Last Admin: 04/13/18 09:21 Dose: 1 mg Lorazepam (Ativan) 1 mg IVPUSH ONETIME ONE Stop: 04/13/18 18:06 Last Admin: 04/13/18 22:16 Dose: Not Given Metoclopramide HCl (Reglan) 10 mg IVPUSH ONETIME ONE Stop: 04/13/18 09:12 Last Admin: 04/13/18 09:21 Dose: 10 mg Morphine Sulfate (Morphine) 2 mg IVPUSH Q2H PRN PRN Reason: Pain (severe 7-10) Stop: 04/14/18 22:32 Last Admin: 04/14/18 06:10 Dose: 2 mg - Exam Wound/Incisions: Dressing Dry and Intact General: Cooperative Lungs: Normal Respiratory Effort, Other (pleurovac with SS drainage, 1 chamber air leak) - Problem List & Annotations (1) Hemothorax, traumatic SNOMED Code(s): 86000620 Code(s): S27.1XXA - TRAUMATIC HEMOTHORAX, INITIAL ENCOUNTER Status: Acute Current Visit: Yes - Problem List Review Problem List Initiated/Reviewed/Updated: Yes - My Orders Last 24 Hours: Active Orders 24 hr Category Date Time Status Patient Status [ADT] Routine ADT 04/13/18 22:29 Active Cardiac Monitoring [RC] CONTINUOUS Care 04/13/18 22:30 Active Height and Weight [RC] 04 Care 04/13/18 22:25 Active Incentive Spirometry [RT Incentive Spirometry] [RC] Care 04/14/18 07:38 Ordered Q1HWA Intake and Output [RC] 04,16 Care 04/13/18 22:30 Active Notify Provider [RC] BID Care 04/14/18 06:52 Active Oxygen Therapy [RC] ASDIRECTED Care 04/13/18 09:15 Active Up to Chair [RC] ASDIRECTED Care 04/13/18 22:25 Active VTE/DVT Education [RC] BID Care 04/13/18 22:29 Active Vital Signs [RC] Q4HR Care 04/13/18 22:29 Active Regular Diet [DIET] Diet 04/14/18 Breakfast Ordered Chest 1V Frontal [CR] DAILY Exams 04/14/18 06:00 Ordered Chest 1V Frontal [CR] DAILY Exams 04/15/18 06:00 Ordered Chest 1V Frontal [CR] DAILY Exams 04/16/18 06:00 Ordered Chest 1V Frontal [CR] DAILY Exams 04/17/18 06:00 Ordered Chest 1V Frontal [CR] Stat Exams 04/13/18 18:37 Taken Chest 1V Frontal [CR] Stat Exams 04/13/18 22:00 Taken Chest PE [Ang Chest] [CT] Stat Exams 04/13/18 19:03 Taken CBC WITH AUTO DIFF [HEME] DAILY Lab 04/15/18 22:30 Ordered CULTURE BLOOD [BC] Stat Lab 04/13/18 21:06 Received CULTURE BLOOD [BC] Stat Lab 04/13/18 21:12 Received Ampicillin/Sulbactam Na [Unasyn] 3 gm Med 04/14/18 04:00 Active Sodium Chloride 0.9% [Normal Saline] 100 ml IV Q6H Folic Acid Med 04/14/18 09:00 Active 1 mg PO DAILY LORazepam [Ativan] Med 04/13/18 22:49 Active 1 - 3 mg IVPUSH Q1H PRN Morphine Med 04/14/18 07:36 Ordered 2 mg IVPUSH Q2H PRN Morphine Med 04/14/18 07:38 Ordered 2 mg IVPUSH Q2H PRN Multivitamins,Therapeutic [Thera] Med 04/14/18 09:00 Active 1 each PO DAILY Nicotine [Habitrol] Med 04/14/18 09:00 Active 21 mg TRDERM DAILY Ondansetron [Zofran] Med 04/13/18 22:25 Active 4 mg IV Q6H PRN Remove Patch Med 04/15/18 09:00 Active 1 ea TRDERM DAILY Sodium Chloride 0.9% [Normal Saline] 1,000 ml Med 04/13/18 22:15 Active IV ASDIRECTED Thiamine [Vitamin B-1] Med 04/14/18 21:00 Active 100 mg PO BEDTIME oxyCODONE Med 04/14/18 07:36 Ordered 10 mg PO Q4H PRN oxyCODONE Med 04/13/18 22:25 Active 5 mg PO Q4H PRN Blood Culture x2 Reflex Set [OM.PC] Stat Oth 04/13/18 20:40 Ordered Sequential Compression Device [OM.PC] Per Unit Routine Oth 04/13/18 22:31 Ordered Resuscitation Status Routine Resus Stat 04/13/18 22:25 Ordered Medication Orders Folic Acid (Folic Acid) 1 mg PO DAILY [facility] Sodium Chloride (Normal Saline) 1,000 mls @ 80 mls/hr IV ASDIRECTED [facility] Last Admin: 04/13/18 22:12 Dose: 80 mls/hr Ampicillin Sodium/Sulbactam (Sodium 3 gm/ Sodium Chloride) 100 mls @ 200 mls/ hr IV Q6H [facility] Last Admin: 04/14/18 03:45 Dose: 200 mls/hr Lorazepam (Ativan) 1 - 3 mg IVPUSH Q1H PRN; Protocol PRN Reason: withdrawl Miscellaneous Information (Remove Patch) 1 ea TRDERM DAILY [facility] Morphine Sulfate (Morphine) 2 mg IVPUSH Q2H PRN PRN Reason: Breakthrough Pain Morphine Sulfate (Morphine) 2 mg IVPUSH Q2H PRN PRN Reason: Breakthrough Pain Stop: 04/14/18 22:32 Multivitamins (Thera) 1 each PO DAILY [facility] Nicotine (Habitrol) 21 mg TRDERM DAILY [facility] Ondansetron HCl (Zofran) 4 mg IV Q6H PRN PRN Reason: Nausea/Vomiting Oxycodone HCl (Oxycodone) 5 mg PO Q4H PRN PRN Reason: Pain (moderate 4-6) Last Admin: 04/14/18 04:27 Dose: 5 mg Admin: 04/14/18 00:09 Dose: 5 mg Oxycodone HCl (Oxycodone) 10 mg PO Q4H PRN PRN Reason: Pain (severe 7-10) Thiamine HCl (Vitamin B-1) 100 mg PO BEDTIME [facility] - Assessment Assessment (Free Text/Narrative):: 43 y/o male with traumatic hemothorax and rib fractures, CT placed in ED - continue CT to low continuous suction - regular diet as tolerated - d/c IVF - daily CXR - will hold heparin until platelets recover - increased PO oxycodone dose - daily CBC Mary Ann Vance MD General surgery
[2018-04-14] MEDS ORDERED: Magnesium Sulfate/Water 4 GM in Premix Bag 1 BAG IV ONE (07:52)
[2018-04-14] MEDS: Folic Acid 1 MG Tab PO SCH (08:03)
[2018-04-14] MEDS: Nicotine 21 MG/24 Hr Patch TRDERM SCH (08:03)
[2018-04-14] MEDS: Potassium Chloride 10% 20 MEQ/15 ML Soln 15 ML UD Cup PO SCH ×3 (08:03→20:32)
[2018-04-14] MEDS: Multivitamins,Therapeutic Tab PO SCH (08:03)
--- NOTE | 2018-04-14 08:57 | CR ---
Chest: Frontal view of the chest is obtained utilizing portable technique. Comparison: Prior chest x-ray of 04/13/18. Left-sided chest tube is seen. Lungs are clear. Heart size is normal. Upper mediastinum is stable. Previously noted left-sided rib fractures not well seen. Air previously seen within left chest wall has diminished on current study. Impression: 1. Left-sided chest tube with decreased air within the chest wall from prior study. Nothing acute is otherwise seen. Diagnostic code #3
[2018-04-14] MEDS: Sodium Chloride 0.9% 1,000 ML IV SCH (10:34)
[2018-04-14] MEDS: Ondansetron 4 MG/2 ML SDV IV PRN ×2 (17:01→23:03)
[2018-04-14] MEDS: Thiamine 100 MG Tab PO SCH (20:30)
[2018-04-14] MEDS: Levofloxacin/Dextrose 5%-Water 750 MG in Premix Bag 1 BAG IV SCH (20:31)
[2018-04-14] MEDS: LORazepam 2 MG/ML SDV IVPUSH PRN (23:04)
[2018-04-15] MEDS: Morphine 2 MG/ML Syringe IVPUSH PRN ×2 (02:04→22:33)
[2018-04-15] MEDS: Ampicillin/Sulbactam Na 3 GM in Sodium Chloride 0.9% 100 ML IV SCH ×4 (04:33→21:51)
[2018-04-15] MEDS: oxyCODONE 5 MG Tab PO PRN ×2 (04:33→20:36)
[2018-04-15] MEDS ORDERED: Metoprolol Tartrate 5 MG in Sodium Chloride 0.9% 50 ML IV PRN (07:38)
--- NOTE | 2018-04-15 07:57 | CR ---
Chest: Portable view of the chest was obtained. Comparison: Prior chest x-ray of 04/14/18. Left-sided chest tube is seen. No subcutaneous air is seen on current study. Poor inspiratory effort is seen. Lungs appear to be clear. Heart size and mediastinum are stable. Bony structures are unchanged. Impression: 1. Left-sided chest tube. Nothing acute is otherwise seen. Diagnostic code #3
[2018-04-15] MEDS: Metoprolol Tartrate 5 MG/5 ML SDV IV PRN ×3 (07:58→21:45)
[2018-04-15] MEDS: Multivitamins,Therapeutic Tab PO SCH (08:03)
[2018-04-15] MEDS: chlordiazePOXIDE 25 MG Cap PO SCH ×4 (08:03→20:36)
[2018-04-15] MEDS: Folic Acid 1 MG Tab PO SCH (08:03)
[2018-04-15] MEDS: Potassium Chloride 10% 20 MEQ/15 ML Soln 15 ML UD Cup PO SCH ×3 (08:03→20:35)
[2018-04-15] MEDS: Nicotine 21 MG/24 Hr Patch TRDERM SCH (08:06)
[2018-04-15] MEDS ORDERED: Ampicillin/Sulbactam Na 3 GM Vial ONE ×2 (09:41→15:49)
[2018-04-15] MEDS: Furosemide 20 MG Tab PO SCH ×2 (09:46→13:33)
--- NOTE | 2018-04-15 10:50 | PCM.SURGPN ---
- General Info Date of Service: 04/15/18 Date of Surgery/Procedure: 04/13/18 Functional Status: Reports: Pain Controlled, Urinating, Incentive Spirometry - Patient Data Vitals - Most Recent: Last Vital Signs Temp 36.9 C 04/15/18 07:41 Pulse 128 H 04/15/18 07:58 Resp 18 04/15/18 07:41 BP 161/89 H 04/15/18 09:19 Pulse Ox 95 04/15/18 07:41 Weight - Most Recent: 123.377 kg I&O - Last 24 Hours: Intake & Output 04/14/18 04/15/18 04/15/18 22:59 06:59 14:59 Intake Total 3380 1150 120 Output Total 380 790 Balance 3000 360 120 Lab Results Last 24 Hrs: Laboratory Results - last 24 hr 04/15/18 04/15/18 Range/Units 04:55 04:55 WBC 8.09 (4.23-9.07) K/mm3 RBC 2.97 L (4.63-6.08) M/mm3 Hgb 8.2 L (13.7-17.5) gm/L Hct 26.8 L (40.1-51.0) % MCV 90.2 (79.0-92.2) fl MCH 27.6 (25.7-32.2) pg MCHC 30.6 L (32.2-35.5) g/dl RDW Std Deviation 52.1 H (35.1-43.9) fL Plt Count 74 L (163-337) K/mm3 MPV 10.6 (9.4-12.3) fl Neut % (Auto) 68.2 H (34.0-67.9) % Lymph % (Auto) 15.3 L (21.8-53.1) % [place] % (Auto) 14.5 H (5.3-12.2) % Eos % (Auto) 1.4 (0.8-7.0) Baso % (Auto) 0.4 (0.1-1.2) % Neut # (Auto) 5.52 H (1.78-5.38) K/mm3 Lymph # (Auto) 1.24 L (1.32-3.57) K/mm3 [place] # (Auto) 1.17 H (0.30-0.82) K/mm3 Eos # (Auto) 0.11 (0.04-0.54) K/mm3 Baso # (Auto) 0.03 (0.01-0.08) K/mm3 Manual Slide Review Abnormal smear Sodium 132 L (136-145) mEq/L Potassium 3.5 (3.5-5.1) mEq/L Chloride 97 L (98-107) mEq/L Carbon Dioxide 30 (21-32) mEq/L Anion Gap 8.5 (5-15) BUN 13 (7-18) mg/dL Creatinine 0.8 (0.7-1.3) mg/dL Est Cr Clr Drug Dosing 128.11 mL/min Estimated GFR (MDRD) > 60 (>60) mL/min BUN/Creatinine Ratio 16.3 (14-18) Glucose 116 H (74-106) mg/dL Calcium 8.0 L (8.5-10.1) mg/dL Phosphorus 2.7 (2.6-4.7) mg/dL Magnesium 1.8 (1.8-2.4) mg/dl Sudheer Results Last 24 Hrs: Microbiology 04/13/18 21:12 Aerobic Blood Culture - Preliminary Blood - Venous - Lab Draw NO GROWTH AFTER 1 DAY Anaerobic Blood Culture - Preliminary NO GROWTH AFTER 1 DAY 04/13/18 21:06 Aerobic Blood Culture - Preliminary Blood - Venous NO GROWTH AFTER 1 DAY Anaerobic Blood Culture - Preliminary NO GROWTH AFTER 1 DAY Med Orders - Current: Current Medications Chlordiazepoxide HCl (Librium) 25 mg PO QID [facility] Last Admin: 04/15/18 08:03 Dose: 25 mg Folic Acid (Folic Acid) 1 mg PO DAILY [facility] Last Admin: 04/15/18 08:03 Dose: 1 mg Furosemide (Lasix) 20 mg PO BIDDIURETIC [facility] Last Admin: 04/15/18 09:46 Dose: 20 mg Ampicillin Sodium/Sulbactam (Sodium 3 gm/ Sodium Chloride) 100 mls @ 200 mls/ hr IV Q6H [facility] Last Admin: 04/15/18 04:33 Dose: 200 mls/hr Levofloxacin/Dextrose 750 mg/ (Premix) 150 mls @ 100 mls/hr IV Q24H [facility] Last Admin: 04/14/18 20:31 Dose: 100 mls/hr Lorazepam (Ativan) 1 - 3 mg IVPUSH Q1H PRN; Protocol PRN Reason: withdrawl Last Admin: 04/14/18 23:04 Dose: 1 mg Metoprolol Tartrate (Lopressor) 5 mg IV Q6H PRN PRN Reason: Tachycardia Last Admin: 04/15/18 07:58 Dose: 5 mg Miscellaneous Information (Remove Patch) 1 ea TRDERM DAILY [facility] Last Admin: 04/15/18 08:06 Dose: Not Given Morphine Sulfate (Morphine) 2 mg IVPUSH Q2H PRN PRN Reason: Breakthrough Pain Last Admin: 04/15/18 02:04 Dose: 2 mg Multivitamins (Thera) 1 each PO DAILY [facility] Last Admin: 04/15/18 08:03 Dose: 1 each Nicotine (Habitrol) 21 mg TRDERM DAILY [facility] Last Admin: 04/15/18 08:06 Dose: Not Given Ondansetron HCl (Zofran) 4 mg IV Q6H PRN PRN Reason: Nausea/Vomiting Last Admin: 04/14/18 23:03 Dose: 4 mg Oxycodone HCl (Oxycodone) 5 mg PO Q4H PRN PRN Reason: Pain (moderate 4-6) Last Admin: 04/14/18 04:27 Dose: 5 mg Oxycodone HCl (Oxycodone) 10 mg PO Q4H PRN PRN Reason: Pain (severe 7-10) Last Admin: 04/15/18 04:33 Dose: 10 mg Potassium Chloride (Potassium Chloride Solution) 20 meq PO TID [facility] Last Admin: 04/15/18 08:03 Dose: 20 meq Thiamine HCl (Vitamin B-1) 100 mg PO BEDTIME [facility] Last Admin: 04/14/18 20:30 Dose: 100 mg Discontinued Medications Ampicillin Sodium/Sulbactam Sodium (Unasyn) Confirm Administered Dose 3 gm .ROUTE .STK-MED ONE Stop: 04/15/18 09:42 Last Admin: 04/15/18 09:46 Dose: Not Given Furosemide (Lasix) 20 mg PO BIDDIURETIC [facility] Heparin Sodium (Porcine) (Heparin Sodium) 5,000 units SUBCUT Q8H [facility] Last Admin: 04/14/18 07:37 Dose: Not Given Dextrose/Lactated Ringer's (Dextrose 5%-Lactated Ringers) 1,000 mls @ 999 mls/ hr IV ASDIRECTED [facility] Last Admin: 04/13/18 09:20 Dose: 999 mls/hr Thiamine HCl 100 mg/ Sodium (Chloride) 101 mls @ 202 mls/hr IV ONETIME ONE Stop: 04/13/18 09:21 Last Admin: 04/13/18 09:36 Dose: 202 mls/hr Potassium Chloride 10 meq/ (Premix) 100 mls @ 100 mls/hr IV ONETIME ONE Stop: 04/13/18 11:54 Last Admin: 04/13/18 11:05 Dose: 100 mls/hr Dextrose/Lactated Ringer's (Dextrose 5%-Lactated Ringers) 1,000 mls @ 250 [facility]ls[facility] Admin: 04/13/18 11:35 Dose: 250 mls/hr Dextrose/Sodium Chloride (Dextrose 5%-Normal Saline) 1,000 mls @ 250 mls/hr IV [facility] Last Admin: 04/13/18 16:17 Dose: 250 mls/hr Potassium Chloride 10 meq/ (Premix) 100 mls @ 100 mls/hr IV ONETIME ONE Stop: 04/13/18 16:53 Last Admin: 04/13/18 16:17 Dose: 100 mls/hr Ampicillin Sodium/Sulbactam (Sodium 3 gm/ Sodium Chloride) 100 mls @ 200 mls/ hr IV ONETIME ONE Stop: 04/13/18 21:08 Last Admin: 04/13/18 22:18 Dose: 200 mls/hr Sodium Chloride (Normal Saline) 1,000 mls @ 80 mls/hr IV [facility] Last Admin: 04/14/18 10:34 Dose: 80 mls/hr Magnesium Sulfate 4 gm/ Premix 100 mls @ 25 mls/hr IV ONETIME ONE Stop: 04/14/18 11:51 Last Admin: 04/14/18 08:03 Dose: 25 mls/hr Iopamidol (Isovue-370 (76%)) 100 ml IVPUSH ONETIME ONE Stop: 04/13/18 19:16 Last Admin: 04/13/18 20:04 Dose: 80 ml Iopamidol (Isovue-370 (76%)) 100 ml IVPUSH ONETIME ONE Stop: 04/13/18 20:04 Last Admin: 04/13/18 20:05 Dose: 80 ml Lorazepam (Ativan) 1 mg IVPUSH ONETIME ONE Stop: 04/13/18 09:07 Last Admin: 04/13/18 09:21 Dose: 1 mg Lorazepam (Ativan) 1 mg IVPUSH ONETIME ONE Stop: 04/13/18 18:06 Last Admin: 04/13/18 22:16 Dose: Not Given Metoclopramide HCl (Reglan) 10 mg IVPUSH ONETIME ONE Stop: 04/13/18 09:12 Last Admin: 04/13/18 09:21 Dose: 10 mg Morphine Sulfate (Morphine) 2 mg IVPUSH Q2H PRN PRN Reason: Pain (severe 7-10) Stop: 04/14/18 22:32 Last Admin: 04/14/18 06:10 Dose: 2 mg Morphine Sulfate (Morphine) 2 mg IVPUSH Q2H PRN PRN Reason: Breakthrough Pain Morphine Sulfate (Morphine) 2 mg IVPUSH Q2H PRN PRN Reason: Breakthrough Pain Stop: 04/14/18 22:32 Last Admin: 04/14/18 21:37 Dose: 2 mg - Exam Wound/Incisions: Dressing Dry and Intact Quality Assessment: Supplemental Oxygen General: Alert Lungs: Normal Respiratory Effort, Other (Pleurovac with 250cc SS drainage over the last 24 hours, no air leak) Cardiovascular: Regular Rhythm, Tachycardia Skin: Warm, Dry, Intact - Problem List & Annotations (1) Hemothorax, traumatic SNOMED Code(s): 49066055 Code(s): S27.1XXA - TRAUMATIC HEMOTHORAX, INITIAL ENCOUNTER Status: Acute Current Visit: Yes - Problem List Review Problem List Initiated/Reviewed/Updated: Yes - My Orders Last 24 Hours: Active Orders 24 hr Category Date Time Status Consult to Occupational Therapy [OT Evaluation and Cons 04/15/18 09:31 Active Treatment] [CONS] Routine PT Evaluation and Treatment [CONS] Routine Cons 04/15/18 09:31 Active Fluid Restriction [DIET] Diet 04/15/18 Lunch Active Chest 1V Frontal [CR] DAILY Exams 04/16/18 06:00 Ordered Chest 1V Frontal [CR] DAILY Exams 04/17/18 06:00 Ordered BASIC METABOLIC PANEL,BMP [CHEM] AM Lab 04/16/18 05:11 Ordered BASIC METABOLIC PANEL,BMP [CHEM] AM Lab 04/17/18 05:11 Ordered BASIC METABOLIC PANEL,BMP [CHEM] AM Lab 04/18/18 05:11 Ordered MAGNESIUM [CHEM] AM Lab 04/16/18 05:11 Ordered MAGNESIUM [CHEM] AM Lab 04/17/18 05:11 Ordered MAGNESIUM [CHEM] AM Lab 04/18/18 05:11 Ordered PHOSPHORUS [CHEM] AM Lab 04/16/18 05:11 Ordered PHOSPHORUS [CHEM] AM Lab 04/17/18 05:11 Ordered PHOSPHORUS [CHEM] AM Lab 04/18/18 05:11 Ordered Furosemide [Lasix] Med 04/15/18 09:33 Active 20 mg PO BIDDIURETIC Levofloxacin/Dextrose 5%-Water [Levaquin in D5W 750 MG/ Med 04/14/18 21:00 Active 150 ML] 750 mg Premix Bag 1 bag IV Q24H Metoprolol Tartrate [Lopressor] Med 04/15/18 07:45 Active 5 mg IV Q6H PRN Morphine Med 04/14/18 22:55 Active 2 mg IVPUSH Q2H PRN Remove Patch Med 04/15/18 09:00 Active 1 ea TRDERM DAILY Thiamine [Vitamin B-1] Med 04/14/18 21:00 Active 100 mg PO BEDTIME chlordiazePOXIDE [Librium] Med 04/15/18 09:00 Active 25 mg PO QID Medication Orders Chlordiazepoxide HCl (Librium) 25 mg PO QID [facility] Last Admin: 04/15/18 08:03 Dose: 25 mg Folic Acid (Folic Acid) 1 mg PO DAILY [facility] Last Admin: 04/15/18 08:03 Dose: 1 mg Admin: 04/14/18 08:03 Dose: 1 mg Furosemide (Lasix) 20 mg PO BIDDIURETIC [facility] Last Admin: 04/15/18 09:46 Dose: 20 mg Ampicillin Sodium/Sulbactam (Sodium 3 gm/ Sodium Chloride) 100 mls @ 200 mls/ hr IV Q6H [facility] Last Admin: 04/15/18 04:33 Dose: 200 mls/hr Infusion: 04/14/18 22:04 Dose: 200 mls/hr Admin: 04/14/18 21:34 Dose: 200 mls/hr Infusion: 04/14/18 16:15 Dose: 200 mls/hr Admin: 04/14/18 15:45 Dose: 200 mls/hr Infusion: 04/14/18 11:50 Dose: 200 mls/hr Admin: 04/14/18 11:20 Dose: 200 mls/hr Infusion: 04/14/18 04:15 Dose: 200 mls/hr Admin: 04/14/18 03:45 Dose: 200 mls/hr Levofloxacin/Dextrose 750 mg/ (Premix) 150 mls @ 100 mls/hr IV Q24H [facility] Last Admin: 04/14/18 20:31 Dose: 100 mls/hr Lorazepam (Ativan) 1 - 3 mg IVPUSH Q1H PRN; Protocol PRN Reason: withdrawl Last Admin: 04/14/18 23:04 Dose: 1 mg Metoprolol Tartrate (Lopressor) 5 mg IV Q6H PRN PRN Reason: Tachycardia Last Admin: 04/15/18 07:58 Dose: 5 mg Miscellaneous Information (Remove Patch) 1 ea TRDERM DAILY [facility] Last Admin: 04/15/18 08:06 Dose: Morphine Sulfate (Morphine) 2 mg IVPUSH Q2H PRN PRN Reason: Breakthrough Pain Last Admin: 04/15/18 02:04 Dose: 2 mg Multivitamins (Thera) 1 each PO DAILY [facility] Last Admin: 04/15/18 08:03 Dose: 1 each Admin: 04/14/18 08:03 Dose: 1 each Nicotine (Habitrol) 21 mg TRDERM DAILY [facility] Last Admin: 04/15/18 08:06 Dose: Not Given Admin: 04/14/18 08:03 Dose: Not Given Ondansetron HCl (Zofran) 4 mg IV Q6H PRN PRN Reason: Nausea/Vomiting Last Admin: 04/14/18 23:03 Dose: 4 mg Admin: 04/14/18 17:01 Dose: 4 mg Oxycodone HCl (Oxycodone) 5 mg PO Q4H PRN PRN Reason: Pain (moderate 4-6) Last Admin: 04/14/18 04:27 Dose: 5 mg Admin: 04/14/18 00:09 Dose: 5 mg Oxycodone HCl (Oxycodone) 10 mg PO Q4H PRN PRN Reason: Pain (severe 7-10) Last Admin: 04/15/18 04:33 Dose: 10 mg Admin: 04/14/18 23:03 Dose: 10 mg Admin: 04/14/18 19:35 Dose: 10 mg Admin: 04/14/18 13:44 Dose: 10 mg Admin: 04/14/18 09:38 Dose: 10 mg Potassium Chloride (Potassium Chloride Solution) 20 meq PO TID [facility] Last Admin: 04/15/18 08:03 Dose: 20 meq Admin: 04/14/18 20:32 Dose: 20 meq Admin: 04/14/18 15:45 Dose: 20 meq Admin: 04/14/18 08:03 Dose: 20 meq Thiamine HCl (Vitamin B-1) 100 mg PO BEDTIME [facility] Last Admin: 04/14/18 20:30 Dose: 100 mg - Assessment Assessment (Free Text/Narrative):: 43-year-old man with traumatic pneumothorax on the left. Doing well with decreased output into the chest tube. - Plan Plan (Free Text/Narrative):: - Continue chest tube to suction until tomorrow. We will monitor for decrease in fluid output to less than 200 cc in 24 hours into the chest tube - Start Lasix today - Chlordiazepoxide for ETOH withdrawal - Metoprolol for control of HR and BP - will continue Unasyn and levofloxacin for total 5d treatment course - Fluid restriction for hyponatremia Mary Ann Vance MD General surgery
[2018-04-15] MEDS ORDERED: Furosemide 20 MG Tab PO SCH (14:00)
[2018-04-15] MEDS: Thiamine 100 MG Tab PO SCH (20:36)
[2018-04-15] MEDS: Levofloxacin/Dextrose 5%-Water 750 MG in Premix Bag 1 BAG IV SCH (20:37)
[2018-04-15] MEDS: Ondansetron 4 MG/2 ML SDV IV PRN (21:51)
[2018-04-16] MEDS: Ampicillin/Sulbactam Na 3 GM in Sodium Chloride 0.9% 100 ML IV SCH ×4 (03:05→21:09)
[2018-04-16] MEDS: Furosemide 20 MG Tab PO SCH ×2 (06:48→13:31)
[2018-04-16] MEDS ORDERED: Magnesium Sulfate/Water 4 GM in Premix Bag 1 BAG IV ONE (07:31)
[2018-04-16] MEDS: Nicotine 21 MG/24 Hr Patch TRDERM SCH (08:42)
--- NOTE | 2018-04-16 08:43 | CR ---
Chest: Portable view of the chest was obtained. Comparison: Prior chest x-ray of 04/15/18. Chest tube has been slightly withdrawn from prior exam. Lung markings are mildly increased which are believed to be chronic. No pneumothorax is seen. Heart size and mediastinum are stable. Rib fractures seen on prior chest CT of 04/13/18 are not well seen on chest x-ray. Impression: 1. Left-sided chest tube which is slightly withdrawn from previous exam. 2. Nothing acute is otherwise seen. Diagnostic code #2
[2018-04-16] MEDS: chlordiazePOXIDE 25 MG Cap PO SCH ×4 (08:44→20:20)
[2018-04-16] MEDS: Phosphorus #1 250 MG Tab PO SCH ×4 (08:44→20:21)
[2018-04-16] MEDS: oxyCODONE 5 MG Tab PO PRN ×2 (08:44→20:21)
[2018-04-16] MEDS: Potassium Chloride 10% 20 MEQ/15 ML Soln 15 ML UD Cup PO SCH ×3 (08:47→20:21)
[2018-04-16] MEDS: Multivitamins,Therapeutic Tab PO SCH (08:47)
[2018-04-16] MEDS: Folic Acid 1 MG Tab PO SCH (08:48)
[2018-04-16] MEDS: Potassium Chloride 10 MEQ in Premix Bag 1 BAG IV SCH ×4 (09:04→12:39)
[2018-04-16] MEDS: Metoprolol Tartrate 5 MG/5 ML SDV IV PRN ×3 (11:36→23:25)
--- NOTE | 2018-04-16 14:53 | PCM.SURGPN ---
- General Info Date of Service: 04/16/18 POD#: 3 Functional Status: Reports: Pain Controlled, Tolerating Diet, Incentive Spirometry - Patient Data Vitals - Most Recent: Last Vital Signs Temp 37.2 C 04/16/18 12:00 Pulse 116 H 04/16/18 11:36 Resp 20 04/16/18 12:00 BP 116/78 04/16/18 12:00 Pulse Ox 95 04/16/18 12:00 Weight - Most Recent: 123.377 kg I&O - Last 24 Hours: Intake & Output 04/15/18 04/16/18 04/16/18 22:59 06:59 14:59 Intake Total 1041 200 440 Output Total 590 790 100 Balance 451 -590 340 Lab Results Last 24 Hrs: Laboratory Results - last 24 hr 04/16/18 Range/Units 06:00 Sodium 134 L (136-145) mEq/L Potassium 3.3 L (3.5-5.1) mEq/L Chloride 98 (98-107) mEq/L Carbon Dioxide 32 (21-32) mEq/L Anion Gap 7.3 (5-15) BUN 13 (7-18) mg/dL Creatinine 0.9 (0.7-1.3) mg/dL Est Cr Clr Drug Dosing 113.88 mL/min Estimated GFR (MDRD) > 60 (>60) mL/min BUN/Creatinine Ratio 14.4 (14-18) Glucose 113 H (74-106) mg/dL Calcium 8.3 L (8.5-10.1) mg/dL Phosphorus 2.5 L (2.6-4.7) mg/dL Magnesium 1.4 L (1.8-2.4) mg/dl Sudheer Results Last 24 Hrs: Microbiology 04/13/18 21:12 Aerobic Blood Culture - Preliminary Blood - Venous - Lab Draw NO GROWTH AFTER 2 DAYS Anaerobic Blood Culture - Preliminary NO GROWTH AFTER 2 DAYS 04/13/18 21:06 Aerobic Blood Culture - Preliminary Blood - Venous NO GROWTH AFTER 2 DAYS Anaerobic Blood Culture - Preliminary NO GROWTH AFTER 2 DAYS Med Orders - Current: Current Medications Chlordiazepoxide HCl (Librium) 25 mg PO QID [facility] Last Admin: 04/16/18 13:31 Dose: 25 mg Folic Acid (Folic Acid) 1 mg PO DAILY [facility] Last Admin: 04/16/18 08:48 Dose: 1 mg Furosemide (Lasix) 20 mg PO BIDDIURETIC [facility] Last Admin: 04/16/18 13:31 Dose: 20 mg Ampicillin Sodium/Sulbactam (Sodium 3 gm/ Sodium Chloride) 100 mls @ 200 mls/ hr IV Q6H [facility] Last Admin: 04/16/18 10:29 Dose: 200 mls/hr Levofloxacin/Dextrose 750 mg/ (Premix) 150 mls @ 100 mls/hr IV Q24H [facility] Last Admin: 04/15/18 20:37 Dose: 100 mls/hr Lorazepam (Ativan) 1 - 3 mg IVPUSH Q1H PRN; Protocol PRN Reason: withdrawl Last Admin: 04/14/18 23:04 Dose: 1 mg Metoprolol Tartrate (Lopressor) 5 mg IV Q6H PRN PRN Reason: Tachycardia Last Admin: 04/16/18 11:36 Dose: 5 mg Miscellaneous Information (Remove Patch) 1 ea TRDERM DAILY [facility] Last Admin: 04/16/18 08:49 Dose: Not Given Morphine Sulfate (Morphine) 2 mg IVPUSH Q2H PRN PRN Reason: Breakthrough Pain Last Admin: 04/15/18 22:33 Dose: 2 mg Multivitamins (Thera) 1 each PO DAILY [facility] Last Admin: 04/16/18 08:47 Dose: 1 each Nicotine (Habitrol) 21 mg TRDERM DAILY [facility] Last Admin: 04/16/18 08:42 Dose: 21 mg Ondansetron HCl (Zofran) 4 mg IV Q6H PRN PRN Reason: Nausea/Vomiting Last Admin: 04/15/18 21:51 Dose: 4 mg Oxycodone HCl (Oxycodone) 5 mg PO Q4H PRN PRN Reason: Pain (moderate 4-6) Last Admin: 04/16/18 08:44 Dose: 5 mg Oxycodone HCl (Oxycodone) 10 mg PO Q4H PRN PRN Reason: Pain (severe 7-10) Last Admin: 04/15/18 04:33 Dose: 10 mg Potassium Chloride (Potassium Chloride Solution) 20 meq PO TID [facility] Last Admin: 04/16/18 14:39 Dose: 20 meq Sodium Phosphate (Neutra-Phos) 250 mg PO QID [facility] Stop: 04/16/18 21:01 Last Admin: 04/16/18 13:31 Dose: 250 mg Thiamine HCl (Vitamin B-1) 100 mg PO BEDTIME [facility] Last Admin: 04/15/18 20:36 Dose: 100 mg Discontinued Medications Ampicillin Sodium/Sulbactam Sodium (Unasyn) Confirm Administered Dose 3 gm .ROUTE .STK-MED ONE Stop: 04/15/18 09:42 Last Admin: 04/15/18 09:46 Dose: Not Given Ampicillin Sodium/Sulbactam Sodium (Unasyn) Confirm Administered Dose 3 gm .ROUTE .STK-MED ONE Stop: 04/15/18 15:50 Last Admin: 04/15/18 15:55 Dose: Not Given Furosemide (Lasix) 20 mg PO BIDDIURETIC [facility] Heparin Sodium (Porcine) (Heparin Sodium) 5,000 units SUBCUT Q8H [facility] Last Admin: 04/14/18 07:37 Dose: Not Given Dextrose/Lactated Ringer's (Dextrose 5%-Lactated Ringers) 1,000 mls @ 999 mls/ hr IV ASDIRECTED [facility] Last Admin: 04/13/18 09:20 Dose: 999 mls/hr Thiamine HCl 100 mg/ Sodium (Chloride) 101 mls @ 202 mls/hr IV ONETIME ONE Stop: 04/13/18 09:21 Last Admin: 04/13/18 09:36 Dose: 202 mls/hr Potassium Chloride 10 meq/ (Premix) 100 mls @ 100 mls/hr IV ONETIME ONE Stop: 04/13/18 11:54 Last Admin: 04/13/18 11:05 Dose: 100 mls/hr Dextrose/Lactated Ringer's (Dextrose 5%-Lactated Ringers) 1,000 mls @ 250 mls/ hr IV ASDIRECTED [facility] Last Admin: 04/13/18 11:35 Dose: 250 mls/hr Dextrose/Sodium Chloride (Dextrose 5%-Normal Saline) 1,000 mls @ 250 mls/hr IV ASDIRECTED [facility] Last Admin: 04/13/18 16:17 Dose: 250 mls/hr Potassium Chloride 10 meq/ (Premix) 100 mls @ 100 mls/hr IV ONETIME ONE Stop: 04/13/18 16:53 Last Admin: 04/13/18 16:17 Dose: 100 mls/hr Ampicillin Sodium/Sulbactam (Sodium 3 gm/ Sodium Chloride) 100 mls @ 200 mls/ hr IV ONETIME ONE Stop: 04/13/18 21:08 Last Admin: 04/13/18 22:18 Dose: 200 mls/hr Sodium Chloride (Normal Saline) 1,000 mls @ 80 mls/hr IV ASDIRECTED [facility] Last Admin: 04/14/18 10:34 Dose: 80 mls/hr Magnesium Sulfate 4 gm/ Premix 100 mls @ 25 mls/hr IV ONETIME ONE Stop: 04/14/18 11:51 Last Admin: 04/14/18 08:03 Dose: 25 mls/hr Magnesium Sulfate 4 gm/ Premix 100 mls @ 25 mls/hr IV ONETIME ONE Stop: 04/16/18 11:30 Last Admin: 04/16/18 08:56 Dose: 25 mls/hr Potassium Chloride 10 meq/ (Premix) 100 mls @ 100 mls/hr IV Q1H [facility] Stop: 04/16/18 11:44 Last Admin: 04/16/18 12:39 Dose: 100 mls/hr Iopamidol (Isovue-370 (76%)) 100 ml IVPUSH ONETIME ONE Stop: 04/13/18 19:16 Last Admin: 04/13/18 20:04 Dose: 80 ml Iopamidol (Isovue-370 (76%)) 100 ml IVPUSH ONETIME ONE Stop: 04/13/18 20:04 Last Admin: 04/13/18 20:05 Dose: 80 ml Lorazepam (Ativan) 1 mg IVPUSH ONETIME ONE Stop: 04/13/18 09:07 Last Admin: 04/13/18 09:21 Dose: 1 mg Lorazepam (Ativan) 1 mg IVPUSH ONETIME ONE Stop: 04/13/18 18:06 Last Admin: 04/13/18 22:16 Dose: Not Given Metoclopramide HCl (Reglan) 10 mg IVPUSH ONETIME ONE Stop: 04/13/18 09:12 Last Admin: 04/13/18 09:21 Dose: 10 mg Morphine Sulfate (Morphine) 2 mg IVPUSH Q2H PRN PRN Reason: Pain (severe 7-10) Stop: 04/14/18 22:32 Last Admin: 04/14/18 06:10 Dose: 2 mg Morphine Sulfate (Morphine) 2 mg IVPUSH Q2H PRN PRN Reason: Breakthrough Pain Morphine Sulfate (Morphine) 2 mg IVPUSH Q2H PRN PRN Reason: Breakthrough Pain Stop: 04/14/18 22:32 Last Admin: 04/14/18 21:37 Dose: 2 mg - Exam Wound/Incisions: Dressing Dry and Intact General: Alert Lungs: Normal Respiratory Effort (Chest tube in place, 200cc SS output in last 24h. ) Skin: Other (jaundiced) - Problem List & Annotations (1) Hemothorax, traumatic SNOMED Code(s): 81266169 Code(s): S27.1XXA - TRAUMATIC HEMOTHORAX, INITIAL ENCOUNTER Status: Acute Current Visit: Yes - Problem List Review Problem List Initiated/Reviewed/Updated: Yes - My Orders Last 24 Hours: Active Orders 24 hr Category Date Time Status Chest 1V Frontal [CR] DAILY Exams 04/17/18 06:00 Ordered BASIC METABOLIC PANEL,BMP [CHEM] AM Lab 04/17/18 05:11 Ordered BASIC METABOLIC PANEL,BMP [CHEM] AM Lab 04/18/18 05:11 Ordered MAGNESIUM [CHEM] AM Lab 04/17/18 05:11 Ordered MAGNESIUM [CHEM] AM Lab 04/18/18 05:11 Ordered PHOSPHORUS [CHEM] AM Lab 04/17/18 05:11 Ordered PHOSPHORUS [CHEM] AM Lab 04/18/18 05:11 Ordered Phosphorus #1 [Neutra-Phos] Med 04/16/18 09:00 Active 250 mg PO QID Medication Orders Chlordiazepoxide HCl (Librium) 25 mg PO QID [facility] Last Admin: 04/16/18 13:31 Dose: 25 mg Admin: 04/16/18 08:44 Dose: 25 mg Admin: 04/15/18 20:36 Dose: 25 mg Admin: 04/15/18 16:34 Dose: 25 mg Admin: 04/15/18 13:33 Dose: 25 mg Admin: 04/15/18 08:03 Dose: 25 mg Folic Acid (Folic Acid) 1 mg PO DAILY [facility] Last Admin: 04/16/18 08:48 Dose: 1 mg Admin: 04/15/18 08:03 Dose: 1 mg Admin: 04/14/18 08:03 Dose: 1 mg Furosemide (Lasix) 20 mg PO BIDDIURETIC [facility] Last Admin: 04/16/18 13:31 Dose: 20 mg Admin: 04/16/18 06:48 Dose: 20 mg Admin: 04/15/18 13:33 Dose: 20 mg Admin: 04/15/18 09:46 Dose: 20 mg Ampicillin Sodium/Sulbactam (Sodium 3 gm/ Sodium Chloride) 100 mls @ 200 mls/ hr IV Q6H [facility] Last Admin: 04/16/18 10:29 Dose: 200 mls/hr Infusion: 04/16/18 03:35 Dose: 200 mls/hr Admin: 04/16/18 03:05 Dose: 200 mls/hr Infusion: 04/15/18 22:21 Dose: 200 mls/hr Admin: 04/15/18 21:51 Dose: 200 mls/hr Infusion: 04/15/18 16:21 Dose: 200 mls/hr Admin: 04/15/18 15:51 Dose: 200 mls/hr Infusion: 04/15/18 11:25 Dose: 200 mls/hr Admin: 04/15/18 10:55 Dose: 200 mls/hr Infusion: 04/15/18 05:03 Dose: 200 mls/hr Admin: 04/15/18 04:33 Dose: 200 mls/hr Infusion: 04/14/18 22:04 Dose: 200 mls/hr Admin: 04/14/18 21:34 Dose: 200 mls/hr Infusion: 04/14/18 16:15 Dose: 200 mls/hr Admin: 04/14/18 15:45 Dose: 200 mls/hr Infusion: 04/14/18 11:50 Dose: 200 mls/hr Admin: 04/14/18 11:20 Dose: 200 mls/hr Infusion: 04/14/18 04:15 Dose: 200 mls/hr Admin: 04/14/18 03:45 Dose: 200 mls/hr Levofloxacin/Dextrose 750 mg/ (Premix) 150 mls @ 100 mls/hr IV Q24H [facility] Last Admin: 04/15/18 20:37 Dose: 100 mls/hr Infusion: 04/14/18 22:01 Dose: 100 mls/hr Admin: 04/14/18 20:31 Dose: 100 mls/hr Lorazepam (Ativan) 1 - 3 mg IVPUSH Q1H PRN; Protocol PRN Reason: withdrawl Last Admin: 04/14/18 23:04 Dose: 1 mg Metoprolol Tartrate (Lopressor) 5 mg IV Q6H PRN PRN Reason: Tachycardia Last Admin: 04/16/18 11:36 Dose: 5 mg Admin: 04/15/18 21:45 Dose: 5 mg Admin: 04/15/18 14:06 Dose: 5 mg Admin: 04/15/18 07:58 Dose: 5 mg Miscellaneous Information (Remove Patch) 1 ea TRDERM DAILY [facility] Last Admin: 04/16/18 08:49 Dose: Admin: 04/15/18 08:06 Dose: Morphine Sulfate (Morphine) 2 mg IVPUSH Q2H PRN PRN Reason: Breakthrough Pain Last Admin: 04/15/18 22:33 Dose: 2 mg Admin: 04/15/18 02:04 Dose: 2 mg Multivitamins (Thera) 1 each PO DAILY [facility] Last Admin: 04/16/18 08:47 Dose: 1 each Admin: 04/15/18 08:03 Dose: 1 each Admin: 04/14/18 08:03 Dose: 1 each Nicotine (Habitrol) 21 mg TRDERM DAILY [facility] Last Admin: 04/16/18 08:42 Dose: 21 mg Admin: 04/15/18 08:06 Dose: Not Given Admin: 04/14/18 08:03 Dose: Not Given Ondansetron HCl (Zofran) 4 mg IV Q6H PRN PRN Reason: Nausea/Vomiting Last Admin: 04/15/18 21:51 Dose: 4 mg Admin: 04/14/18 23:03 Dose: 4 mg Admin: 04/14/18 17:01 Dose: 4 mg Oxycodone HCl (Oxycodone) 5 mg PO Q4H PRN PRN Reason: Pain (moderate 4-6) Last Admin: 04/16/18 08:44 Dose: 5 mg Admin: 04/15/18 20:36 Dose: 5 mg Admin: 04/14/18 04:27 Dose: 5 mg Admin: 04/14/18 00:09 Dose: 5 mg Oxycodone HCl (Oxycodone) 10 mg PO Q4H PRN PRN Reason: Pain (severe 7-10) Last Admin: 04/15/18 04:33 Dose: 10 mg Admin: 04/14/18 23:03 Dose: 10 mg Admin: 04/14/18 19:35 Dose: 10 mg Admin: 04/14/18 13:44 Dose: 10 mg Admin: 04/14/18 09:38 Dose: 10 mg Potassium Chloride (Potassium Chloride Solution) 20 meq PO TID [facility] Last Admin: 04/16/18 14:39 Dose: 20 meq Admin: 04/16/18 08:47 Dose: 20 meq Admin: 04/15/18 20:35 Dose: 20 meq Admin: 04/15/18 14:11 Dose: 20 meq Admin: 04/15/18 08:03 Dose: 20 meq Admin: 04/14/18 20:32 Dose: 20 meq Admin: 04/14/18 15:45 Dose: 20 meq Admin: 04/14/18 08:03 Dose: 20 meq Sodium Phosphate (Neutra-Phos) 250 mg PO QID [facility] Stop: 04/16/18 21:01 Last Admin: 04/16/18 13:31 Dose: 250 mg Admin: 04/16/18 08:44 Dose: 250 mg Thiamine HCl (Vitamin B-1) 100 mg PO BEDTIME [facility] Last Admin: 04/15/18 20:36 Dose: 100 mg Admin: 04/14/18 20:30 Dose: 100 mg - Assessment Assessment (Free Text/Narrative):: 43-year-old man with traumatic hemothorax, chest tube in place - Plan Plan (Free Text/Narrative):: - continue chest tube to waterseal - daily chest x-ray - Will obtain daily labs for Platelet count as well as monitoring electrolytes - [facility] protocol for alcohol withdrawal - Continue current medical management Mary Ann Vance MD General Surgery
[2018-04-16] MEDS: Levofloxacin/Dextrose 5%-Water 750 MG in Premix Bag 1 BAG IV SCH (20:20)
[2018-04-16] MEDS: Thiamine 100 MG Tab PO SCH (20:21)
[2018-04-16] MEDS: Morphine 2 MG/ML Syringe IVPUSH PRN (23:06)
[2018-04-17] MEDS: LORazepam 2 MG/ML SDV IVPUSH PRN ×4 (00:25→09:43)
[2018-04-17] MEDS: Ampicillin/Sulbactam Na 3 GM in Sodium Chloride 0.9% 100 ML IV SCH ×2 (04:08→10:14)
[2018-04-17] MEDS ORDERED: chlordiazePOXIDE 25 MG Cap PO SCH (05:00)
[2018-04-17] MEDS: Furosemide 20 MG Tab PO SCH (05:16)
[2018-04-17] MEDS: Metoprolol Tartrate 5 MG/5 ML SDV IV PRN (06:08)
--- NOTE | 2018-04-17 07:48 | PCM.SURGPN ---
- General Info Date of Service: 04/17/18 Date of Surgery/Procedure: 04/13/18 Functional Status: Reports: Urinating, Other (pt with increased tachycardia and disorientation, pulled out his chest tube overnight.) - Patient Data Vitals - Most Recent: Last Vital Signs Temp 37.2 C 04/17/18 04:00 Pulse 124 H 04/17/18 06:08 Resp 24 H 04/17/18 04:00 BP 111/98 H 04/17/18 06:08 Pulse Ox 93 L 04/17/18 04:00 Weight - Most Recent: 122.47 kg I&O - Last 24 Hours: Intake & Output 04/16/18 04/17/18 04/17/18 22:59 06:59 14:59 Intake Total 860 650 Output Total 1600 440 300 Balance -740 210 -300 Lab Results Last 24 Hrs: Laboratory Results - last 24 hr 04/17/18 04/17/18 Range/Units 06:00 06:00 Sodium 135 L (136-145) mEq/L Potassium 3.3 L (3.5-5.1) mEq/L Chloride 99 (98-107) mEq/L Carbon Dioxide 30 (21-32) mEq/L Anion Gap 9.3 (5-15) BUN 10 (7-18) mg/dL Creatinine 0.9 (0.7-1.3) mg/dL Est Cr Clr Drug Dosing 113.88 mL/min Estimated GFR (MDRD) > 60 (>60) mL/min BUN/Creatinine Ratio 11.1 L (14-18) Glucose 102 (74-106) mg/dL Calcium 7.9 L (8.5-10.1) mg/dL Phosphorus 3.8 (2.6-4.7) mg/dL Magnesium 1.4 L (1.8-2.4) mg/dl Ammonia 39 H (11-32) umol/L Sudheer Results Last 24 Hrs: Microbiology 04/13/18 21:12 Aerobic Blood Culture - Preliminary Blood - Venous - Lab Draw NO GROWTH AFTER 3 DAYS Anaerobic Blood Culture - Preliminary NO GROWTH AFTER 3 DAYS 04/13/18 21:06 Aerobic Blood Culture - Preliminary Blood - Venous NO GROWTH AFTER 3 DAYS Anaerobic Blood Culture - Preliminary NO GROWTH AFTER 3 DAYS Med Orders - Current: Current Medications Chlordiazepoxide HCl (Librium) 50 mg PO Q6H [facility] Last Admin: 04/17/18 05:17 Dose: 50 mg Clonidine HCl (Catapres) 0.1 mg PO Q6H [facility] Folic Acid (Folic Acid) 1 mg PO DAILY [facility] Last Admin: 04/16/18 08:48 Dose: 1 mg Furosemide (Lasix) 20 mg PO BIDDIURETIC [facility] Last Admin: 04/17/18 05:16 Dose: 20 mg Ampicillin Sodium/Sulbactam (Sodium 3 gm/ Sodium Chloride) 100 mls @ 200 mls/ hr IV Q6H [facility] Last Admin: 04/17/18 04:08 Dose: 200 mls/hr Levofloxacin/Dextrose 750 mg/ (Premix) 150 mls @ 100 mls/hr IV Q24H [facility] Last Admin: 04/16/18 20:20 Dose: 100 mls/hr Lorazepam (Ativan) 1 - 3 mg IVPUSH Q1H PRN; Protocol PRN Reason: withdrawl Last Admin: 04/17/18 03:45 Dose: 1 mg Metoprolol Tartrate (Lopressor) 5 mg IV Q6H PRN PRN Reason: Tachycardia Last Admin: 04/17/18 06:08 Dose: 5 mg Miscellaneous Information (Remove Patch) 1 ea TRDERM DAILY [facility] Last Admin: 04/16/18 08:49 Dose: Not Given Morphine Sulfate (Morphine) 2 mg IVPUSH Q2H PRN PRN Reason: Breakthrough Pain Last Admin: 04/16/18 23:06 Dose: 2 mg Multivitamins (Thera) 1 each PO DAILY [facility] Last Admin: 04/16/18 08:47 Dose: 1 each Nicotine (Habitrol) 21 mg TRDERM DAILY [facility] Last Admin: 04/16/18 08:42 Dose: 21 mg Ondansetron HCl (Zofran) 4 mg IV Q6H PRN PRN Reason: Nausea/Vomiting Last Admin: 04/15/18 21:51 Dose: 4 mg Oxycodone HCl (Oxycodone) 5 mg PO Q4H PRN PRN Reason: Pain (moderate 4-6) Last Admin: 04/16/18 20:21 Dose: 5 mg Oxycodone HCl (Oxycodone) 10 mg PO Q4H PRN PRN Reason: Pain (severe 7-10) Last Admin: 04/15/18 04:33 Dose: 10 mg Potassium Chloride (Potassium Chloride Solution) 20 meq PO TID [facility] Last Admin: 04/16/18 20:21 Dose: 20 meq Thiamine HCl (Vitamin B-1) 100 mg PO BEDTIME [facility] Last Admin: 04/16/18 20:21 Dose: 100 mg Discontinued Medications Ampicillin Sodium/Sulbactam Sodium (Unasyn) Confirm Administered Dose 3 gm .ROUTE .STK-MED ONE Stop: 04/15/18 09:42 Last Admin: 04/15/18 09:46 Dose: Not Given Ampicillin Sodium/Sulbactam Sodium (Unasyn) Confirm Administered Dose 3 gm .ROUTE .STK-MED ONE Stop: 04/15/18 15:50 Last Admin: 04/15/18 15:55 Dose: Not Given Chlordiazepoxide HCl (Librium) 25 mg PO QID [facility] Last Admin: 04/16/18 20:20 Dose: 25 mg Furosemide (Lasix) 20 mg PO BIDDIURETIC [facility] Heparin Sodium (Porcine) (Heparin Sodium) 5,000 units SUBCUT Q8H [facility] Last Admin: 04/14/18 07:37 Dose: Not Given Dextrose/Lactated Ringer's (Dextrose 5%-Lactated Ringers) 1,000 mls @ 999 mls/ hr IV ASDIRECTED [facility] Last Admin: 04/13/18 09:20 Dose: 999 mls/hr Thiamine HCl 100 mg/ Sodium (Chloride) 101 mls @ 202 mls/hr IV ONETIME ONE Stop: 04/13/18 09:21 Last Admin: 04/13/18 09:36 Dose: 202 mls/hr Potassium Chloride 10 meq/ (Premix) 100 mls @ 100 mls/hr IV ONETIME ONE Stop: 04/13/18 11:54 Last Admin: 04/13/18 11:05 Dose: 100 mls/hr Dextrose/Lactated Ringer's (Dextrose 5%-Lactated Ringers) 1,000 mls @ 250 mls/ hr IV ASDIRECTED [facility] Last Admin: 04/13/18 11:35 Dose: 250 mls/hr Dextrose/Sodium Chloride (Dextrose 5%-Normal Saline) 1,000 mls @ 250 mls/hr IV ASDIRECTED [facility] Last Admin: 04/13/18 16:17 Dose: 250 mls/hr Potassium Chloride 10 meq/ (Premix) 100 mls @ 100 mls/hr IV ONETIME ONE Stop: 04/13/18 16:53 Last Admin: 04/13/18 16:17 Dose: 100 mls/hr Ampicillin Sodium/Sulbactam (Sodium 3 gm/ Sodium Chloride) 100 mls @ 200 mls/ hr IV ONETIME ONE Stop: 04/13/18 21:08 Last Admin: 04/13/18 22:18 Dose: 200 mls/hr Sodium Chloride (Normal Saline) 1,000 mls @ 80 mls/hr IV ASDIRECTED [facility] Last Admin: 04/14/18 10:34 Dose: 80 mls/hr Magnesium Sulfate 4 gm/ Premix 100 mls @ 25 mls/hr IV ONETIME ONE Stop: 04/14/18 11:51 Last Admin: 04/14/18 08:03 Dose: 25 mls/hr Magnesium Sulfate 4 gm/ Premix 100 mls @ 25 mls/hr IV ONETIME ONE Stop: 04/16/18 11:30 Last Admin: 04/16/18 08:56 Dose: 25 mls/hr Potassium Chloride 10 meq/ (Premix) 100 mls @ 100 mls/hr IV Q1H [facility] Stop: 04/16/18 11:44 Last Admin: 04/16/18 12:39 Dose: 100 mls/hr Iopamidol (Isovue-370 (76%)) 100 ml IVPUSH ONETIME ONE Stop: 04/13/18 19:16 Last Admin: 04/13/18 20:04 Dose: 80 ml Iopamidol (Isovue-370 (76%)) 100 ml IVPUSH ONETIME ONE Stop: 04/13/18 20:04 Last Admin: 04/13/18 20:05 Dose: 80 ml Lorazepam (Ativan) 1 mg IVPUSH ONETIME ONE Stop: 04/13/18 09:07 Last Admin: 04/13/18 09:21 Dose: 1 mg Lorazepam (Ativan) 1 mg IVPUSH ONETIME ONE Stop: 04/13/18 18:06 Last Admin: 04/13/18 22:16 Dose: Not Given Metoclopramide HCl (Reglan) 10 mg IVPUSH ONETIME ONE Stop: 04/13/18 09:12 Last Admin: 04/13/18 09:21 Dose: 10 mg Morphine Sulfate (Morphine) 2 mg IVPUSH Q2H PRN PRN Reason: Pain (severe 7-10) Stop: 04/14/18 22:32 Last Admin: 04/14/18 06:10 Dose: 2 mg Morphine Sulfate (Morphine) 2 mg IVPUSH Q2H PRN PRN Reason: Breakthrough Pain Morphine Sulfate (Morphine) 2 mg IVPUSH Q2H PRN PRN Reason: Breakthrough Pain Stop: 04/14/18 22:32 Last Admin: 04/14/18 21:37 Dose: 2 mg Sodium Phosphate (Neutra-Phos) 250 mg PO QID [facility] Stop: 04/16/18 21:01 Last Admin: 04/16/18 20:21 Dose: 250 mg - Exam Quality Assessment: Supplemental Oxygen General: Lethargic Lungs: Other (CT noted outside of the chest, was removed and occlusive dressing applied). No: Normal Respiratory Effort (increased respiratory effort) Cardiovascular: Regular Rate, Tachycardia Skin: Warm, Other (clammy) - Problem List & Annotations (1) Hemothorax, traumatic SNOMED Code(s): 01290651 Code(s): S27.1XXA - TRAUMATIC HEMOTHORAX, INITIAL ENCOUNTER Status: Acute - Problem List Review Problem List Initiated/Reviewed/Updated: Yes - My Orders Last 24 Hours: Active Orders 24 hr Category Date Time Status Chest 1V Frontal [CR] DAILY Exams 04/17/18 06:00 Ordered BASIC METABOLIC PANEL,BMP [CHEM] AM Lab 04/18/18 05:11 Ordered CBC WITH AUTO DIFF [HEME] AM Lab 04/18/18 05:11 Ordered MAGNESIUM [CHEM] AM Lab 04/18/18 05:11 Ordered PHOSPHORUS [CHEM] AM Lab 04/18/18 05:11 Ordered chlordiazePOXIDE [Librium] Med 04/17/18 05:00 Active 50 mg PO Q6H cloNIDine [Catapres] Med 04/17/18 08:00 Active 0.1 mg PO Q6H Medication Orders Chlordiazepoxide HCl (Librium) 50 mg PO Q6H [facility] Last Admin: 04/17/18 05:17 Dose: 50 mg Clonidine HCl (Catapres) 0.1 mg PO Q6H [facility] Folic Acid (Folic Acid) 1 mg PO DAILY [facility] Last Admin: 04/16/18 08:48 Dose: 1 mg Admin: 04/15/18 08:03 Dose: 1 mg Admin: 04/14/18 08:03 Dose: 1 mg Furosemide (Lasix) 20 mg PO BIDDIURETIC [facility] Last Admin: 04/17/18 05:16 Dose: 20 mg Admin: 04/16/18 13:31 Dose: 20 mg Admin: 04/16/18 06:48 Dose: 20 mg Admin: 04/15/18 13:33 Dose: 20 mg Admin: 04/15/18 09:46 Dose: 20 mg Ampicillin Sodium/Sulbactam (Sodium 3 gm/ Sodium Chloride) 100 mls @ 200 mls/ hr IV Q6H [facility] Last Admin: 04/17/18 04:08 Dose: 200 mls/hr Infusion: 04/16/18 21:39 Dose: 200 mls/hr Admin: 04/16/18 21:09 Dose: 200 mls/hr Infusion: 04/16/18 16:35 Dose: 200 mls/hr Admin: 04/16/18 16:05 Dose: 200 mls/hr Infusion: 04/16/18 10:59 Dose: 200 mls/hr Admin: 04/16/18 10:29 Dose: 200 mls/hr Infusion: 04/16/18 03:35 Dose: 200 mls/hr Admin: 04/16/18 03:05 Dose: 200 mls/hr Infusion: 04/15/18 22:21 Dose: 200 mls/hr Admin: 04/15/18 21:51 Dose: 200 mls/hr Infusion: 04/15/18 16:21 Dose: 200 mls/hr Admin: 04/15/18 15:51 Dose: 200 mls/hr Infusion: 04/15/18 11:25 Dose: 200 mls/hr Admin: 04/15/18 10:55 Dose: 200 mls/hr Infusion: 04/15/18 05:03 Dose: 200 mls/hr Admin: 04/15/18 04:33 Dose: 200 mls/hr Infusion: 04/14/18 22:04 Dose: 200 mls/hr Admin: 04/14/18 21:34 Dose: 200 mls/hr Infusion: 04/14/18 16:15 Dose: 200 mls/hr Admin: 04/14/18 15:45 Dose: 200 mls/hr Infusion: 04/14/18 11:50 Dose: 200 mls/hr Admin: 04/14/18 11:20 Dose: 200 mls/hr Infusion: 04/14/18 04:15 Dose: 200 mls/hr Admin: 04/14/18 03:45 Dose: 200 mls/hr Levofloxacin/Dextrose 750 mg/ (Premix) 150 mls @ 100 mls/hr IV Q24H [facility] Last Admin: 04/16/18 20:20 Dose: 100 mls/hr Infusion: 04/15/18 22:07 Dose: 100 mls/hr Admin: 04/15/18 20:37 Dose: 100 mls/hr Infusion: 04/14/18 22:01 Dose: 100 mls/hr Admin: 04/14/18 20:31 Dose: 100 mls/hr Lorazepam (Ativan) 1 - 3 mg IVPUSH Q1H PRN; Protocol PRN Reason: withdrawl Last Admin: 04/17/18 03:45 Dose: 1 mg Admin: 04/17/18 01:52 Dose: 1 mg Admin: 04/17/18 00:25 Dose: 1 mg Admin: 04/14/18 23:04 Dose: 1 mg Metoprolol Tartrate (Lopressor) 5 mg IV Q6H PRN PRN Reason: Tachycardia Last Admin: 04/17/18 06:08 Dose: 5 mg Admin: 04/16/18 23:25 Dose: 5 mg Admin: 04/16/18 17:56 Dose: 5 mg Admin: 04/16/18 11:36 Dose: 5 mg Admin: 04/15/18 21:45 Dose: 5 mg Admin: 04/15/18 14:06 Dose: 5 mg Admin: 04/15/18 07:58 Dose: 5 mg Miscellaneous Information (Remove Patch) 1 ea TRDERM DAILY [facility] Last Admin: 04/16/18 08:49 Dose: Admin: 04/15/18 08:06 Dose: Morphine Sulfate (Morphine) 2 mg IVPUSH Q2H PRN PRN Reason: Breakthrough Pain Last Admin: 04/16/18 23:06 Dose: 2 mg Admin: 04/15/18 22:33 Dose: 2 mg Admin: 04/15/18 02:04 Dose: 2 mg Multivitamins (Thera) 1 each PO DAILY [facility] Last Admin: 04/16/18 08:47 Dose: 1 each Admin: 04/15/18 08:03 Dose: 1 each Admin: 04/14/18 08:03 Dose: 1 each Nicotine (Habitrol) 21 mg TRDERM DAILY [facility] Last Admin: 04/16/18 08:42 Dose: 21 mg Admin: 04/15/18 08:06 Dose: Not Given Admin: 04/14/18 08:03 Dose: Not Given Ondansetron HCl (Zofran) 4 mg IV Q6H PRN PRN Reason: Nausea/Vomiting Last Admin: 04/15/18 21:51 Dose: 4 mg Admin: 04/14/18 23:03 Dose: 4 mg Admin: 04/14/18 17:01 Dose: 4 mg Oxycodone HCl (Oxycodone) 5 mg PO Q4H PRN PRN Reason: Pain (moderate 4-6) Last Admin: 04/16/18 20:21 Dose: 5 mg Admin: 04/16/18 08:44 Dose: 5 mg Admin: 04/15/18 20:36 Dose: 5 mg Admin: 04/14/18 04:27 Dose: 5 mg Admin: 04/14/18 00:09 Dose: 5 mg Oxycodone HCl (Oxycodone) 10 mg PO Q4H PRN PRN Reason: Pain (severe 7-10) Last Admin: 04/15/18 04:33 Dose: 10 mg Admin: 04/14/18 23:03 Dose: 10 mg Admin: 04/14/18 19:35 Dose: 10 mg Admin: 04/14/18 13:44 Dose: 10 mg Admin: 04/14/18 09:38 Dose: 10 mg Potassium Chloride (Potassium Chloride Solution) 20 meq PO TID [facility] Last Admin: 04/16/18 20:21 Dose: 20 meq Admin: 04/16/18 14:39 Dose: 20 meq Admin: 04/16/18 08:47 Dose: 20 meq Admin: 04/15/18 20:35 Dose: 20 meq Admin: 04/15/18 14:11 Dose: 20 meq Admin: 04/15/18 08:03 Dose: 20 meq Admin: 04/14/18 20:32 Dose: 20 meq Admin: 04/14/18 15:45 Dose: 20 meq Admin: 04/14/18 08:03 Dose: 20 meq Thiamine HCl (Vitamin B-1) 100 mg PO BEDTIME [facility] Last Admin: 04/16/18 20:21 Dose: 100 mg Admin: 04/15/18 20:36 Dose: 100 mg Admin: 04/14/18 20:30 Dose: 100 mg - Assessment Assessment (Free Text/Narrative):: 43 y/o male with traumatic hemothorax, now in ETOH withdrawal. CT was accidentally removed. Follow up CXR revealed pneumothorax. - Plan Plan (Free Text/Narrative):: - replace chest tube at the bedside, please see procedure note - transfer to [facility] for further care. I discussed the care of the patient with the hospitalist team, and performed a verbal handoff - clonidine added for BP control - increased chlordiazepoxide for ETOH withdrawal Mary Ann Vance MD General Surgery
[2018-04-17] MEDS ORDERED: cloNIDine 0.1 MG Tab PO SCH (08:00)
--- NOTE | 2018-04-17 08:42 | CR ---
Chest: Frontal view of the chest was obtained. Comparison: Prior chest x-ray of 04/16/18. Left-sided chest tube has been removed. There is a small pleural line seen within left mid chest most likely due to minimal loculated pneumothorax. Poor inspiratory effort is seen. Lung markings are diffusely increased which appear fairly stable. Heart size and mediastinum are stable. Impression: 1. Removal of left-sided chest tube. Possible small loculated pneumothorax within the left mid chest. Follow-up recommended in 24 hours to make sure findings decrease or remain stable. 2. Diffuse increased lung markings with poor inspiratory effort. These findings are fairly stable from previous study. Diagnostic code #3
[2018-04-17] MEDS: Multivitamins,Therapeutic Tab PO SCH (09:13)
[2018-04-17] MEDS: Folic Acid 1 MG Tab PO SCH (09:13)
[2018-04-17] MEDS: Nicotine 21 MG/24 Hr Patch TRDERM SCH (09:14)
[2018-04-17] MEDS: Potassium Chloride 10% 20 MEQ/15 ML Soln 15 ML UD Cup PO SCH (09:14)
[2018-04-17] MEDS ORDERED: Lidocaine 1% with EPINEPHrine 1:100,000 20 ML MDV INJECT ONE (09:56)
--- NOTE | 2018-04-17 11:09 | CR ---
Chest: Portable view of the chest was obtained. Comparison: Prior chest x-ray of 04/17/18. Mild increased atelectasis within the right lung base is seen. Small left-sided pneumothorax is noted. Left basilar chest tube is noted. Minimal atelectasis is noted on the left side. Heart size and mediastinum are normal. Bony structures show left lower rib fractures. Impression: 1. Left basilar chest tube. 2. Small left-sided pneumothorax is seen. 3. Areas of atelectasis as noted above. Diagnostic code #3
--- NOTE | 2018-04-17 12:53 | PCM.PRNOTE ---
- Free Text/Narrative Note: Operative Report Date of procedure: April 17, 2018 Preprocedure diagnosis: Traumatic hemothorax and pneumothorax Postprocedure diagnosis: same Procedure performed: Left tube thoracostomy Surgeon: Dr. Mary Ann Vance Anesthesia: Local anesthetic with 1% lidocaine Manager Regional Sales: . None Estimated blood loss: 50 mL (from the incision and into the chest tube). IV fluids: None Urine output: N/A Drains and lines: 36F Chest tube on the left Indication for the procedure: The patient is a 43-year-old man who presented to the emergency department after he was found unresponsive in his home. He was found to have a traumatic hemothorax, and this was drained with a chest tube placed on admission. He was subsequently hospitalized and started to undergo alcohol withdrawal symptoms. He unintentionally discontinued his chest tube. A postop chest x-ray was performed which revealed a pneumothorax present after this occurred. Emergency consent was utilized due to the emergent nature of this condition, and the patient is not fully oriented and unable to consent for himself Description of the procedure: The patient was positioned on the bed and prepped and draped in standard surgical fashion. . We began by injecting lidocaine in the area of the incision. The skin was then incised using a 11 blade scalpel down to subcutaneous fat and deepened down towards the level of the intercostal muscles. More lidocaine was injected at this level. Blunt dissection was then used to dissect the tissue and the curved 8 instrument was used to enter the pleura. Upon entry through the pleura, there was immediately a return of blood. A 36 Tamazight chest tube was then placed through this space into the pleural cavity. It was secured to the chest using an 0 silk suture. A occlusive sterile dressing was then applied. An upright one view chest x-ray was then used to confirm correct placement of the chest tube. Complications: None apparent. Disposition: guarded, in the ICU Mary Ann Vance MD General Surgery
--- NOTE | 2018-04-17 13:02 | PCM.DCSUM1 ---
Discharge Summary - Hospital Course Free Text/Narrative:: The patient is a 43-year-old male who presented to the emergency department with a traumatic hemothorax after he was found at home with alcohol intoxication. He was evaluated in the emergency department. He 2. Thoracostomy was placed to drain the hemothorax and he was admitted to the ICU at the hospital. He was treated with [place] protocol for alcohol withdrawal, and his chest tube was monitored daily for outputs and with chest radiograph. On hospital day 1 was noted to have more agitation as well as tachycardia and hypertension. Metoprolol was added to his medication regimen. We also added Librium for alcohol withdrawal. On hospital days 2 and 3, he continued to have drainage from his chest tube. However, on hospital day 3, chest tube was placed to waterseal. Because the drainage had decreased. We continued to make adjustments to his medical regimen for his withdrawal. On hospital day 4, it was noted that his chest tube was no longer tidaling. Upon evaluation of his pleural VAC the chest tube was completely out of the chest and the patient had accidentally removed the chest tube. We evaluated with a repeat chest x-ray which indicated a pneumothorax. A 36 Telugu chest tube was then placed at the bedside. We initiated transfer to higher level of care and [facility] due to the continued length of stay, as well as patient's progressing alcohol withdrawal. The transfer was accepted Diagnosis: Stroke: No - Discharge Data Discharge Date: 04/17/18 Discharge Disposition: DC/Tfer to Acute Hospital 02 Condition: Fair - Discharge Diagnosis/Problem(s) (1) Hemothorax, traumatic SNOMED Code(s): 87314064 ICD Code: S27.1XXA - TRAUMATIC HEMOTHORAX, INITIAL ENCOUNTER Status: Acute - Patient Summary/Data Consults: Consultations 04/15/18 09:31 Consult to Occupational Therapy [OT Evaluation and Treatment] [CONS] Routine PT Evaluation and Treatment [CONS] Routine - Discharge Plan *PRESCRIPTION DRUG MONITORING PROGRAM REVIEWED*: No *COPY OF PRESCRIPTION DRUG MONITORING REPORT IN PATIENT BUTCH: No Home Medications: Home Meds Furosemide 20 mg PO DAILY 04/13/18 [History] Propranolol [Inderal] 10 mg PO BID 04/13/18 [History] Patient Handouts: What You Need to Know About Alcohol Abuse and Dependence, Adult, Alcohol Intoxication, [id number], Alcohol Abuse and Nutrition, Finding Treatment for Addiction, Steps to Quit Smoking - Patient Data Vitals - Most Recent: Last Vital Signs Temp 37.7 C 04/17/18 10:00 Pulse 124 H 04/17/18 06:08 Resp 22 H 04/17/18 10:00 BP 136/67 04/17/18 10:00 Pulse Ox 94 L 04/17/18 10:00 Weight - Most Recent: 122.47 kg I&O - Last 24 hours: Intake & Output 04/16/18 04/17/18 04/17/18 22:59 06:59 14:59 Intake Total 860 650 0 Output Total 1600 440 750 Balance -740 210 -750 Lab Results - Last 24 hrs: Laboratory Results - last 24 hr 04/17/18 04/17/18 Range/Units 06:00 06:00 Sodium 135 L (136-145) mEq/L Potassium 3.3 L (3.5-5.1) mEq/L Chloride 99 (98-107) mEq/L Carbon Dioxide 30 (21-32) mEq/L Anion Gap 9.3 (5-15) BUN 10 (7-18) mg/dL Creatinine 0.9 (0.7-1.3) mg/dL Est Cr Clr Drug Dosing 113.88 mL/min Estimated GFR (MDRD) > 60 (>60) mL/min BUN/Creatinine Ratio 11.1 L (14-18) Glucose 102 (74-106) mg/dL Calcium 7.9 L (8.5-10.1) mg/dL Phosphorus 3.8 (2.6-4.7) mg/dL Magnesium 1.4 L (1.8-2.4) mg/dl Ammonia 39 H (11-32) umol/L KENNY Results - Last 24 hrs: Microbiology 04/13/18 21:12 Aerobic Blood Culture - Preliminary Blood - Venous - Lab Draw NO GROWTH AFTER 3 DAYS Anaerobic Blood Culture - Preliminary NO GROWTH AFTER 3 DAYS 04/13/18 21:06 Aerobic Blood Culture - Preliminary Blood - Venous NO GROWTH AFTER 3 DAYS Anaerobic Blood Culture - Preliminary NO GROWTH AFTER 3 DAYS Med Orders - Current: Current Medications Discontinued Medications Ampicillin Sodium/Sulbactam Sodium (Unasyn) Confirm Administered Dose 3 gm .ROUTE .STK-MED ONE Stop: 04/15/18 09:42 Last Admin: 04/15/18 09:46 Dose: Not Given Ampicillin Sodium/Sulbactam Sodium (Unasyn) Confirm Administered Dose 3 gm .ROUTE .STK-MED ONE Stop: 04/15/18 15:50 Last Admin: 04/15/18 15:55 Dose: Not Given Chlordiazepoxide HCl (Librium) 25 mg PO QID [facility] Last Admin: 04/16/18 20:20 Dose: 25 mg Chlordiazepoxide HCl (Librium) 50 mg PO Q6H [facility] Last Admin: 04/17/18 05:17 Dose: 50 mg Clonidine HCl (Catapres) 0.1 mg PO Q6H [facility] Last Admin: 04/17/18 09:13 Dose: 0.1 mg Folic Acid (Folic Acid) 1 mg PO DAILY [facility] Last Admin: 04/17/18 09:13 Dose: 1 mg Furosemide (Lasix) 20 mg PO BIDDIURETIC PERLA Furosemide (Lasix) 20 mg PO BIDDIURETIC [facility] Last Admin: 04/17/18 05:16 Dose: 20 mg Heparin Sodium (Porcine) (Heparin Sodium) 5,000 units SUBCUT Q8H [facility] Last Admin: 04/14/18 07:37 Dose: Not Given Dextrose/Lactated Ringer's (Dextrose 5%-Lactated Ringers) 1,000 mls @ 999 mls/ hr IV ASDIRECTED [facility] Last Admin: 04/13/18 09:20 Dose: 999 mls/hr Thiamine HCl 100 mg/ Sodium (Chloride) 101 mls @ 202 mls/hr IV ONETIME ONE Stop: 04/13/18 09:21 Last Admin: 04/13/18 09:36 Dose: 202 mls/hr Potassium Chloride 10 meq/ (Premix) 100 mls @ 100 mls/hr IV ONETIME ONE Stop: 04/13/18 11:54 Last Admin: 04/13/18 11:05 Dose: 100 mls/hr Dextrose/Lactated Ringer's (Dextrose 5%-Lactated Ringers) 1,000 mls @ 250 mls/ hr IV ASDIRECTED [facility] Last Admin: 04/13/18 11:35 Dose: 250 mls/hr Dextrose/Sodium Chloride (Dextrose 5%-Normal Saline) 1,000 mls @ 250 mls/hr IV ASDIRECTED [facility] Last Admin: 04/13/18 16:17 Dose: 250 mls/hr Potassium Chloride 10 meq/ (Premix) 100 mls @ 100 mls/hr IV ONETIME ONE Stop: 04/13/18 16:53 Last Admin: 04/13/18 16:17 Dose: 100 mls/hr Ampicillin Sodium/Sulbactam (Sodium 3 gm/ Sodium Chloride) 100 mls @ 200 mls/ hr IV ONETIME ONE Stop: 04/13/18 21:08 Last Admin: 04/13/18 22:18 Dose: 200 mls/hr Sodium Chloride (Normal Saline) 1,000 mls @ 80 mls/hr IV ASDIRECTED [facility] Last Admin: 04/14/18 10:34 Dose: 80 mls/hr Ampicillin Sodium/Sulbactam (Sodium 3 gm/ Sodium Chloride) 100 mls @ 200 mls/ hr IV Q6H [facility] Last Admin: 04/17/18 10:14 Dose: 200 mls/hr Magnesium Sulfate 4 gm/ Premix 100 mls @ 25 mls/hr IV ONETIME ONE Stop: 04/14/18 11:51 Last Admin: 04/14/18 08:03 Dose: 25 mls/hr Levofloxacin/Dextrose 750 mg/ (Premix) 150 mls @ 100 mls/hr IV Q24H [facility] Last Admin: 04/16/18 20:20 Dose: 100 mls/hr Magnesium Sulfate 4 gm/ Premix 100 mls @ 25 mls/hr IV ONETIME ONE Stop: 04/16/18 11:30 Last Admin: 04/16/18 08:56 Dose: 25 mls/hr Potassium Chloride 10 meq/ (Premix) 100 mls @ 100 mls/hr IV Q1H [facility] Stop: 04/16/18 11:44 Last Admin: 04/16/18 12:39 Dose: 100 mls/hr Iopamidol (Isovue-370 (76%)) 100 ml IVPUSH ONETIME ONE Stop: 04/13/18 19:16 Last Admin: 04/13/18 20:04 Dose: 80 ml Iopamidol (Isovue-370 (76%)) 100 ml IVPUSH ONETIME ONE Stop: 04/13/18 20:04 Last Admin: 04/13/18 20:05 Dose: 80 ml Lidocaine/Epinephrine (Xylocaine 1% With Epinephrine 1:100,000) 20 ml INJECT ONETIME ONE Stop: 04/17/18 09:57 Last Admin: 04/17/18 08:00 Dose: 20 ml Lorazepam (Ativan) 1 mg IVPUSH ONETIME ONE Stop: 04/13/18 09:07 Last Admin: 04/13/18 09:21 Dose: 1 mg Lorazepam (Ativan) 1 mg IVPUSH ONETIME ONE Stop: 04/13/18 18:06 Last Admin: 04/13/18 22:16 Dose: Not Given Lorazepam (Ativan) 1 - 3 mg IVPUSH Q1H PRN; Protocol PRN Reason: withdrawl Last Admin: 04/17/18 09:43 Dose: 1 mg Metoclopramide HCl (Reglan) 10 mg IVPUSH ONETIME ONE Stop: 04/13/18 09:12 Last Admin: 04/13/18 09:21 Dose: 10 mg Metoprolol Tartrate (Lopressor) 5 mg IV Q6H PRN PRN Reason: Tachycardia Last Admin: 04/17/18 06:08 Dose: 5 mg Miscellaneous Information (Remove Patch) 1 ea TRDERM DAILY [facility] Last Admin: 04/17/18 11:59 Dose: 1 ea Morphine Sulfate (Morphine) 2 mg IVPUSH Q2H PRN PRN Reason: Pain (severe 7-10) Stop: 04/14/18 22:32 Last Admin: 04/14/18 06:10 Dose: 2 mg Morphine Sulfate (Morphine) 2 mg IVPUSH Q2H PRN PRN Reason: Breakthrough Pain Morphine Sulfate (Morphine) 2 mg IVPUSH Q2H PRN PRN Reason: Breakthrough Pain Stop: 04/14/18 22:32 Last Admin: 04/14/18 21:37 Dose: 2 mg Morphine Sulfate (Morphine) 2 mg IVPUSH Q2H PRN PRN Reason: Breakthrough Pain Last Admin: 04/16/18 23:06 Dose: 2 mg Multivitamins (Thera) 1 each PO DAILY [facility] Last Admin: 04/17/18 09:13 Dose: 1 each Nicotine (Habitrol) 21 mg TRDERM DAILY [facility] Last Admin: 04/17/18 09:14 Dose: 21 mg Ondansetron HCl (Zofran) 4 mg IV Q6H PRN PRN Reason: Nausea/Vomiting Last Admin: 04/15/18 21:51 Dose: 4 mg Oxycodone HCl (Oxycodone) 5 mg PO Q4H PRN PRN Reason: Pain (moderate 4-6) Last Admin: 04/16/18 20:21 Dose: 5 mg Oxycodone HCl (Oxycodone) 10 mg PO Q4H PRN PRN Reason: Pain (severe 7-10) Last Admin: 04/15/18 04:33 Dose: 10 mg Potassium Chloride (Potassium Chloride Solution) 20 meq PO TID [facility] Last Admin: 04/17/18 09:14 Dose: 20 meq Sodium Phosphate (Neutra-Phos) 250 mg PO QID [facility] Stop: 04/16/18 21:01 Last Admin: 04/16/18 20:21 Dose: 250 mg Thiamine HCl (Vitamin B-1) 100 mg PO BEDTIME [facility] Last Admin: 04/16/18 20:21 Dose: 100 mg
== END 2018-04-17 10:24 | DRG 200 ==
LOC: JD.ED 08:45 → JD.ICU 22:29
PROVIDERS: ADMIT Surgery; ATTEND Surgery
PROC: 0W9B30Z Drainage of Left Pleural Cavity with Drainage Device, Percutaneous Approach (ICD-10-PCS; principal; 2018-04-13)
PROC: 0W9B30Z Drainage of Left Pleural Cavity with Drainage Device, Percutaneous Approach (ICD-10-PCS; 2018-04-17)
DX: S27.2XXA Traumatic hemopneumothorax, initial encounter (principal); S22.42XA Multiple fractures of ribs, left side, initial encounter for closed fracture; F10.239 Alcohol dependence with withdrawal, unspecified; I42.6 Alcoholic cardiomyopathy; E87.1 Hypo-osmolality and hyponatremia; S01.81XA Laceration without foreign body of other part of head, initial encounter; W06.XXXA Fall from bed, initial encounter; F10.229 Alcohol dependence with intoxication, unspecified; I10 Essential (primary) hypertension; R09.02 Hypoxemia; R06.89 Other abnormalities of breathing; F17.200 Nicotine dependence, unspecified, uncomplicated; K72.90 Hepatic failure, unspecified without coma; K70.30 Alcoholic cirrhosis of liver without ascites; Z79.899 Other long term (current) drug therapy
CPT/HCPCS: 32551; 36415; 36600; 70450; 70450-26; 71045; 71045-26; 71275; 71275-26; 80048; 80053; 80306; 81003; 82009; 82140; 82550; 82803; 83605; 83690; 83735; 83880; 84100; 84484; 85007; 85025; 85027; 85379; 85610; 86140; 87040; 93005; 96361; 96365; 96366; 96367; 96375; 97110-GO; 97116-GP; 97162-GP; 97167-GO; 97530-GO; 99285; 99285-25; A9270-GY; G0480; J0295; J1644; J1956; J2060; J2270; J2405; J2765; J3411; J3475; J3480; J3490; J7030; J7040; J7042; Q9967